=== PATIENT | female | born 1985 | race Caucasian/White ===

== ENCOUNTER 2018-02-10 20:39 | Inpatient (IN) | payer BC ==
[~2018-02-10] VITALS: Ht 154.9 cm; Wt 69.0 kg
[2018-02-10 22:29] LABS: BASOPHILS % (AUTO) 0.2 % (0-1); EOSINOPHILS # (AUTO) 0.1 X10'3 (0-0.9); EOSINOPHILS % (AUTO) 1.1 % (0-6); HEMATOCRIT 39.5 % (35.0-45.0); HEMOGLOBIN 13.6 g/dl (12.0-16.0); LYMPHOCYTES # (AUTO) 1.2 X10'3 (1.1-4.8); LYMPHOCYTES % (AUTO) 10.5 % (21-51); MEAN CORPUSCULAR HEMOGLOBIN 30.9 PG (27.0-31.0); MEAN CORPUSCULAR HGB CONC 34.4 % (33.0-36.5); MEAN CORPUSCULAR VOLUME 89.9 FL (78-98); MEAN PLATELET VOLUME 8.4 FL (7.4-10.4); MONOCYTES # (AUTO) 0.9 X10'3 (0-0.9); NEUTROPHILS # (AUTO) 9.3 X10'3 (1.8-7.7); NEUTROPHILS % (AUTO) 80.2 % (42-75); PLATELET COUNT 265 X10'3 (140-440); RED BLOOD COUNT 4.39 X10'6 (4.20-5.60); WHITE BLOOD COUNT 11.6 X10'3 (4.5-11.0)
[2018-02-10 22:39] LABS: PROTHROMBIN TIME 10.1 SECONDS (9.0-12.0)
[2018-02-10 22:46] LABS: ALANINE AMINOTRANSFERASE 410 U/L (12-78); ALBUMIN 3.8 G/DL (3.4-5.0); ALKALINE PHOSPHATASE 174 IU/L (46-116); ANION GAP 9 (8-16); ASPARTATE AMINO TRANSFERASE 320 U/L (10-37); BILIRUBIN,TOTAL 1.8 MG/DL (0.1-1.0); BLOOD UREA NITROGEN 13 MG/DL (7-18); BUN/CREATININE RATIO 15.7 (6.6-38.0); CALCIUM 9.3 MG/DL (8.5-10.1); CHLORIDE 108 MMOL/L (99-107); CREATININE 0.83 MG/DL (0.40-0.90); GLUCOSE 109 MG/DL (70-104); POTASSIUM 3.8 MMOL/L (3.5-5.1); SODIUM 145 MMOL/L (135-145); TOTAL CARBON DIOXIDE 28.5 MMOL/L (24-32); TOTAL PROTEIN 7.5 G/DL (6.4-8.2); eGFR 80 ML/MIN
[2018-02-10] MEDS ORDERED: mag hydrox/Alum hydrox/simeth 30ml oral suspension PO ONE (22:50)
[2018-02-10] MEDS ORDERED: LIDOcaine Viscous 15ml cup MM PRN (22:50)
[2018-02-10 23:23] LABS: LIPASE 216 U/L (73-393)
[2018-02-10] MEDS ORDERED: morphine 4 MG/ML inj SYRINge IV ONE (23:30)
[2018-02-10] MEDS ORDERED: ondansetron/PF 4mg/2ml inj IV ONE (23:30)
[2018-02-10 23:52] LABS: URINE HCG NEGATIVE (NEG)
[2018-02-10 23:53] LABS: ETHANOL < 0.010 GM/DL (0.0-0.010)
[2018-02-11] VITALS (18 sets, daily range): BP systolic 100–137; BP diastolic 65–99
[2018-02-11] LABS: COLOR,URINE YELLOW (Yellow); GLUCOSE, URINE NEGATIVE (Neg); KETONES,URINE TRACE mg/dl (Neg); LEUKOCYTE ESTERASE ,URINE NEGATIVE (Neg); NITRITES, URINE NEGATIVE (Neg); OCCULT BLOOD,URINE NEGATIVE (Neg); PROTEIN,URINE TRACE mg/dl (Neg)
[2018-02-11 00:09] LABS: CLARITY,URINE SLIGHTLY CLOUDY (Clear); UA COLLECTION TYPE CLN CATCH MIDSTREAM
[2018-02-11 00:11] LABS: BACTERIA,URINE FEW /HPF (Neg); MUCUS STRANDS MODERATE /LPF (Neg); RBC,URINE 0-2 /HPF (0-2); SQUAMOUS EPITHELIAL CELL,UR FEW /LPF (FEW); URINE AMPHETAMINE SCREEN NEGATIVE (Neg); URINE BARBITUATE SCREEN NEGATIVE (Neg); URINE BENZODIAZEPINES SCREEN NEGATIVE (Neg); URINE CANNABINOID SCREEN NEGATIVE (Neg); URINE COCAINE SCREEN NEGATIVE (Neg); URINE METHADONE SCREEN NEGATIVE (Neg); URINE OPIATE SCREEN NEGATIVE (Neg); URINE PHENCYCLIDINE SCREEN NEGATIVE (Neg); WBC,URINE 0-4 /HPF (0-4)
[2018-02-11] MEDS ORDERED: normal saline 1000ml 1,000 ML IV ONE (00:26)
[2018-02-11] MEDS ORDERED: normal saline 1000ML IV soln IVB ONE ×3 (00:30→02:40)
[2018-02-11] MEDS ORDERED: morphine 4 MG/ML inj SYRINge IV PRN ×3 (00:30→02:35)
[2018-02-11] MEDS ORDERED: iohexol 300mg/ml 100ml inj. ONE (00:34)
[2018-02-11] MEDS ORDERED: piperacillin/tazo 3.375gm/50ml 50 ML IV ONE (01:25)
[2018-02-11] MEDS ORDERED: HYDROcodone/acetaminophen 5mg/325mg tablet PO PRN (02:35)
[2018-02-11] MEDS ORDERED: magnesium 4gm in 100ml NS 100 ML IV PRN (02:35)
[2018-02-11] MEDS ORDERED: ondansetron/PF 4mg/2ml inj IV PRN (02:35)
[2018-02-11] MEDS ORDERED: potassium Cl 40MEQ/NS 500ml 500 ML IV PRN ×2 (02:35)
[2018-02-11] MEDS ORDERED: HYDROcodone/acetaminophen 10/325mg tab PO PRN (02:35)
[2018-02-11] MEDS ORDERED: acetaminophen 325mg tablet PO PRN ×2 (02:35)
[2018-02-11] MEDS ORDERED: potassium Cl 20 mEq SR tablet PO PRN ×2 (02:35)
[2018-02-11] MEDS ORDERED: magnesium 2GM in 50ml NS 50 ML IV PRN (02:35)
[2018-02-11] MEDS ORDERED: magnesium Cl slow-release 64mg tablet PO PRN (02:35)
[2018-02-11] MEDS ORDERED: magnesium hydroxide 30ml (MOM) UD suspension PO PRN (02:35)
[2018-02-11] MEDS ORDERED: mag hydrox/Alum hydrox/simeth 30ml oral suspension PO PRN (02:35)
[2018-02-11] MEDS: normal saline 1000ml 1,000 ML IV SCH ×3 (03:10→22:32)
[2018-02-11] MEDS ORDERED: PANT20TA3 PO (03:16)
[2018-02-11] MEDS ORDERED: AMOX-441 PO (03:16)
[2018-02-11] MEDS ORDERED: CLAR500T PO (03:16)
[2018-02-11 04:57] LABS: ALANINE AMINOTRANSFERASE 352 U/L (12-78); ALBUMIN 3.1 G/DL (3.4-5.0); ALKALINE PHOSPHATASE 160 IU/L (46-116); ASPARTATE AMINO TRANSFERASE 232 U/L (10-37); BILIRUBIN,DIRECT 0.8 MG/DL (0-0.3); BILIRUBIN,TOTAL 1.6 MG/DL (0.1-1.0); TOTAL PROTEIN 6.2 G/DL (6.4-8.2)
[2018-02-11] MEDS: K and/or MAG REPLACEMENT MC SCH (08:00)
[2018-02-11] MEDS: piperacillin/tazo 3.375gm/50ml 50 ML IV SCH ×2 (08:41→19:21)
[2018-02-11] MEDS: morphine 4 MG/ML inj SYRINge IV PRN ×3 (14:18→23:29)
[2018-02-11] MEDS ORDERED: diphenhydrAMINE 50 mg/ml inj ONE (15:24)
[2018-02-11] MEDS ORDERED: meperidine/PF 100mg/ml syringe ONE (15:24)
[2018-02-11] MEDS ORDERED: fentaNYL/PF 50MCG/1 ML 2ML syringe ONE (15:24)
[2018-02-11] MEDS ORDERED: LIDOcaine Viscous 15ml cup ONE (15:24)
[2018-02-11] MEDS ORDERED: MIDAZolam 5mg/5ml vial ONE (15:24)
[2018-02-11] MEDS ORDERED: levoFLOXACIN-Levaquin 500mg/D5 0 ML IV ONE (15:25)
[2018-02-11] MEDS ORDERED: iohexol 300 MG/1 ML 50ml polymer ONE (15:25)
[2018-02-11] MEDS ORDERED: glucagon, human recombinant 1mg kit ONE (15:25)
[2018-02-11] MEDS ORDERED: temazepam 15mg capsule PO PRN (21:00)
[2018-02-12] VITALS (17 sets, daily range): BP systolic 108–140; BP diastolic 72–98
[2018-02-12] MEDS: piperacillin/tazo 3.375gm/50ml 50 ML IV SCH ×2 (00:44→08:00)
[2018-02-12 04:08] LABS: BASOPHILS % (AUTO) 0.1 % (0-1); EOSINOPHILS # (AUTO) 0.2 X10'3 (0-0.9); EOSINOPHILS % (AUTO) 2.3 % (0-6); HEMATOCRIT 32.9 % (35.0-45.0); LYMPHOCYTES % (AUTO) 26.8 % (21-51); MEAN CORPUSCULAR HEMOGLOBIN 30.3 PG (27.0-31.0); MEAN CORPUSCULAR HGB CONC 33.4 % (33.0-36.5); MEAN CORPUSCULAR VOLUME 90.5 FL (78-98); MEAN PLATELET VOLUME 8.1 FL (7.4-10.4); MONOCYTES # (AUTO) 0.7 X10'3 (0-0.9); MONOCYTES % (AUTO) 9.6 % (2-12); NEUTROPHILS # (AUTO) 4.6 X10'3 (1.8-7.7); NEUTROPHILS % (AUTO) 61.2 % (42-75); PLATELET COUNT 208 X10'3 (140-440); RED BLOOD COUNT 3.63 X10'6 (4.20-5.60); RED CELL DISTRIBUTION WIDTH 13.3 % (11.5-14.5); WHITE BLOOD COUNT 7.5 X10'3 (4.5-11.0)
[2018-02-12 04:42] LABS: ALANINE AMINOTRANSFERASE 242 U/L (12-78); ALKALINE PHOSPHATASE 136 IU/L (46-116); ANION GAP 12 (8-16); ASPARTATE AMINO TRANSFERASE 98 U/L (10-37); BILIRUBIN,TOTAL 1.2 MG/DL (0.1-1.0); BLOOD UREA NITROGEN 5 MG/DL (7-18); BUN/CREATININE RATIO 6.8 (6.6-38.0); CALCIUM 7.8 MG/DL (8.5-10.1); CHLORIDE 106 MMOL/L (99-107); CREATININE 0.74 MG/DL (0.40-0.90); GLUCOSE 77 MG/DL (70-104); MAGNESIUM 1.9 MG/DL (1.5-2.4); POTASSIUM 3.5 MMOL/L (3.5-5.1); SODIUM 141 MMOL/L (135-145); TOTAL CARBON DIOXIDE 23.1 MMOL/L (24-32); eGFR > 90 ML/MIN
[2018-02-12] MEDS: K and/or MAG REPLACEMENT MC SCH (08:00)
[2018-02-12] MEDS ORDERED: ceFAZolin 1000mg inj IR ONE (08:00)
[2018-02-12] MEDS ORDERED: fentaNYL /PF 50mcg/ml 5ml ampule ONE (08:05)
[2018-02-12] MEDS ORDERED: midazolam 2 mg/2 ml injection ONE (08:05)
[2018-02-12] MEDS: normal saline 1000ml 1,000 ML IV SCH (08:32)
[2018-02-12] MEDS ORDERED: ringers solution, lacted 1,000 ML IV SCH (08:34)
[2018-02-12] MEDS ORDERED: ondansetron/PF 4mg/2ml inj IV PRN (08:35)
[2018-02-12] MEDS ORDERED: meperidine/PF 25mg/ml syringe IV PRN ×2 (08:35)
[2018-02-12] MEDS ORDERED: morphine 4 MG/ML inj SYRINge IV PRN ×2 (08:35)
[2018-02-12] MEDS ORDERED: proCHLORperazine 10 MG/2 ml inj IV PRN (08:35)
[2018-02-12] MEDS ORDERED: rocuronium 10mg/ml inj IV ONE (08:50)
[2018-02-12] MEDS ORDERED: glycopyrrolate 0.2mg/ml inj ONE (08:50)
[2018-02-12] MEDS ORDERED: dexamethasone sod phosphate 4mg/ml inj. ONE (08:50)
[2018-02-12] MEDS ORDERED: neostigmine methylsulfate 1 MG/ML 10ml vial ONE (08:50)
[2018-02-12] MEDS ORDERED: propofol inj 20 ML IV ONE (08:50)
[2018-02-12] MEDS ORDERED: ondansetron/PF 4mg/2ml inj ONE (08:50)
[2018-02-12] MEDS ORDERED: LIDOcaine 2% (20mg/ml) 5ml vial ONE (08:50)
[2018-02-12] MEDS ORDERED: meperidine/PF 50mg/ml syringe ONE (09:00)
[2018-02-12] MEDS ORDERED: ketorolac trometh. 30mg/ml inj. IV ONE (09:15)
[2018-02-12] MEDS ORDERED: acetaminophen 1,000mg/100ml IV 100 ML IV ONE (09:15)
[2018-02-12] MEDS: meperidine/PF 25mg/ml syringe IV PRN ×2 (09:21→09:47)
[2018-02-12] MEDS ORDERED: ceFAZolin 1000mg inj ONE (09:23)
[2018-02-12] MEDS ORDERED: morphine 2 MG/ML inj. syringe IV ONE (11:25)
[2018-02-12] MEDS ORDERED: LIDOcaine Viscous 15ml cup MM ONE (11:25)
[2018-02-12] MEDS: morphine 4 MG/ML inj SYRINge IV PRN ×4 (11:32→23:31)
[2018-02-12] MEDS: amoxicillin 250mg capsule PO SCH (19:36)
[2018-02-12] MEDS: pantoprazole 40mg Tablet.DR PO SCH ×2 (19:36→19:43)
[2018-02-12] MEDS: clarithromycin 250mg tablet PO SCH (19:36)
[2018-02-12] MEDS: lactobacillus rhamnosus 10,000 MMU CELLS/CAPSULE PO SCH (19:36)
[2018-02-13] VITALS: BP 123/78
[2018-02-13] MEDS: morphine 4 MG/ML inj SYRINge IV PRN ×3 (03:31→16:10)
[2018-02-13 05:29] LABS: BASOPHILS % (AUTO) 0 % (0-1); EOSINOPHILS # (AUTO) 0.1 X10'3 (0-0.9); EOSINOPHILS % (AUTO) 0.9 % (0-6); HEMATOCRIT 32.8 % (35.0-45.0); HEMOGLOBIN 11.1 g/dl (12.0-16.0); LYMPHOCYTES # (AUTO) 0.7 X10'3 (1.1-4.8); LYMPHOCYTES % (AUTO) 6.2 % (21-51); MEAN CORPUSCULAR HEMOGLOBIN 30.5 PG (27.0-31.0); MEAN CORPUSCULAR HGB CONC 33.8 % (33.0-36.5); MEAN CORPUSCULAR VOLUME 90.3 FL (78-98); MEAN PLATELET VOLUME 8.7 FL (7.4-10.4); MONOCYTES # (AUTO) 0.9 X10'3 (0-0.9); MONOCYTES % (AUTO) 7.8 % (2-12); NEUTROPHILS # (AUTO) 9.3 X10'3 (1.8-7.7); NEUTROPHILS % (AUTO) 85.1 % (42-75); PLATELET COUNT 240 X10'3 (140-440); RED BLOOD COUNT 3.63 X10'6 (4.20-5.60); RED CELL DISTRIBUTION WIDTH 13.1 % (11.5-14.5); WHITE BLOOD COUNT 10.9 X10'3 (4.5-11.0)
[2018-02-13 06:09] LABS: ALANINE AMINOTRANSFERASE 264 U/L (12-78); ALBUMIN 3.2 G/DL (3.4-5.0); ALKALINE PHOSPHATASE 130 IU/L (46-116); ANION GAP 9 (8-16); ASPARTATE AMINO TRANSFERASE 139 U/L (10-37); BILIRUBIN,TOTAL 0.6 MG/DL (0.1-1.0); BLOOD UREA NITROGEN 6 MG/DL (7-18); CALCIUM 8.4 MG/DL (8.5-10.1); CHLORIDE 105 MMOL/L (99-107); GLUCOSE 104 MG/DL (70-104); MAGNESIUM 1.9 MG/DL (1.5-2.4); POTASSIUM 3.9 MMOL/L (3.5-5.1); SODIUM 138 MMOL/L (135-145); TOTAL PROTEIN 6.4 G/DL (6.4-8.2); eGFR > 90 ML/MIN
[2018-02-13 07:06] VITALS: BP 111/75
[2018-02-13] MEDS: K and/or MAG REPLACEMENT MC SCH (08:00)
[2018-02-13] MEDS: pantoprazole 40mg Tablet.DR PO SCH (08:00)
[2018-02-13] MEDS: clarithromycin 250mg tablet PO SCH (08:57)
[2018-02-13] MEDS: lactobacillus rhamnosus 10,000 MMU CELLS/CAPSULE PO SCH ×2 (08:57→19:44)
[2018-02-13] MEDS: amoxicillin 250mg capsule PO SCH (08:57)
[2018-02-13 11:48] VITALS: BP 115/83
[2018-02-13 19:00] VITALS: BP 111/73
[2018-02-13] MEDS ORDERED: morphine 2 MG/ML inj. syringe IV PRN (19:17)
[2018-02-13] MEDS: morphine 2 MG/ML inj. syringe IV PRN (20:41)
[2018-02-14 05:21] LABS: BASOPHILS % (AUTO) 0.2 % (0-1); EOSINOPHILS # (AUTO) 0.1 X10'3 (0-0.9); EOSINOPHILS % (AUTO) 1.6 % (0-6); HEMATOCRIT 32.1 % (35.0-45.0); HEMOGLOBIN 10.8 g/dl (12.0-16.0); LYMPHOCYTES # (AUTO) 1.7 X10'3 (1.1-4.8); MEAN CORPUSCULAR HEMOGLOBIN 30.5 PG (27.0-31.0); MEAN CORPUSCULAR HGB CONC 33.5 % (33.0-36.5); MEAN CORPUSCULAR VOLUME 90.8 FL (78-98); MEAN PLATELET VOLUME 8.3 FL (7.4-10.4); MONOCYTES # (AUTO) 0.8 X10'3 (0-0.9); MONOCYTES % (AUTO) 10.2 % (2-12); NEUTROPHILS # (AUTO) 5.4 X10'3 (1.8-7.7); PLATELET COUNT 202 X10'3 (140-440); RED BLOOD COUNT 3.53 X10'6 (4.20-5.60); RED CELL DISTRIBUTION WIDTH 13.2 % (11.5-14.5); WHITE BLOOD COUNT 8.1 X10'3 (4.5-11.0)
[2018-02-14] MEDS: morphine 2 MG/ML inj. syringe IV PRN (05:25)
[2018-02-14 05:31] LABS: ALANINE AMINOTRANSFERASE 231 U/L (12-78); ALBUMIN/GLOBULIN RATIO 0.9 (1.1-1.5); ALKALINE PHOSPHATASE 112 IU/L (46-116); ANION GAP 7 (8-16); ASPARTATE AMINO TRANSFERASE 90 U/L (10-37); BILIRUBIN,TOTAL 0.4 MG/DL (0.1-1.0); BLOOD UREA NITROGEN 9 MG/DL (7-18); BUN/CREATININE RATIO 14.8 (6.6-38.0); CALCIUM 8.5 MG/DL (8.5-10.1); CHLORIDE 107 MMOL/L (99-107); CREATININE 0.61 MG/DL (0.40-0.90); GLUCOSE 100 MG/DL (70-104); POTASSIUM 3.9 MMOL/L (3.5-5.1); SODIUM 142 MMOL/L (135-145); TOTAL CARBON DIOXIDE 28.3 MMOL/L (24-32); TOTAL PROTEIN 6.2 G/DL (6.4-8.2); eGFR > 90 ML/MIN
[2018-02-14 05:37] VITALS: BP 107/68
[2018-02-14 07:16] VITALS: BP 105/72
[2018-02-14] MEDS: K and/or MAG REPLACEMENT MC SCH (08:00)
[2018-02-14] MEDS: lactobacillus rhamnosus 10,000 MMU CELLS/CAPSULE PO SCH (08:02)
[2018-02-14 11:00] VITALS: BP 118/74
[2018-02-14] MEDS ORDERED: OMEP-50 PO (12:58)
[2018-02-14] MEDS ORDERED: HYDR-569 PO (12:58)
== END 2018-02-14 15:10 | disposition home or self-care (01) | DRG 446 ==
LOC: ER 20:40 → ED HOLD 02-11 02:32 → SUR 3N 02-11 03:30
PROVIDERS: ADMIT Family Medicine; ATTEND Family Medicine
PROC: 0FC98ZZ Extirpation of Matter from Common Bile Duct, Via Natural or Artificial Opening Endoscopic (ICD-10-PCS; principal; 2018-02-11)
PROC: BF101ZZ Fluoroscopy of Bile Ducts using Low Osmolar Contrast (ICD-10-PCS; 2018-02-11)
PROC: BW211ZZ Computerized Tomography (CT Scan) of Abdomen and Pelvis using Low Osmolar Contrast (ICD-10-PCS; 2018-02-11)
DX: K80.62 Calculus of gallbladder and bile duct with acute cholecystitis without obstruction (principal); E28.2 Polycystic ovarian syndrome; E66.3 Overweight; G47.00 Insomnia, unspecified; N87.9 Dysplasia of cervix uteri, unspecified; K21.9 Gastro-esophageal reflux disease without esophagitis; Z68.28 Body mass index [BMI] 28.0-28.9, adult
CPT/HCPCS: 36415; 74177; 74181; 76700; 80053; 80076; 80305; 80320; 81001; 81003; 81025; 83605; 83690; 83735; 84100; 84145; 85025; 85610; 87040; 87070; A4620; A7000; G0500; J0131; J0690; J1100; J1200; J1610; J1885; J1956; J2001; J2175; J2250; J2270; J2405; J2543; J2704; J2710; J3010; J3490; J7030; J7120; Q9967

== ENCOUNTER 2018-03-27 13:41 | Emergency (ER) | payer BC ==
[~2018-03-27] VITALS: Ht 154.9 cm; Wt 68.8 kg
[~2018-03-27 13:41] MED LIST: AMOX-441 PO; CLAR500T PO; HYDR-569 PO; OMEP-50 PO
[2018-03-27] MEDS ORDERED: LORazepam 1 MG tablet PO ONE (14:55)
[2018-03-27 15:15] LABS: BASOPHILS # (AUTO) 0.1 X10'3 (0-0.2); BASOPHILS % (AUTO) 0.6 % (0-1); EOSINOPHILS # (AUTO) 0.1 X10'3 (0-0.9); EOSINOPHILS % (AUTO) 0.7 % (0-6); HEMATOCRIT 38.5 % (35.0-45.0); LYMPHOCYTES % (AUTO) 21.3 % (21-51); MEAN CORPUSCULAR HEMOGLOBIN 30.7 PG (27.0-31.0); MEAN CORPUSCULAR HGB CONC 33.7 % (33.0-36.5); MEAN PLATELET VOLUME 8.4 FL (7.4-10.4); MONOCYTES # (AUTO) 0.9 X10'3 (0-0.9); MONOCYTES % (AUTO) 9.9 % (2-12); NEUTROPHILS # (AUTO) 6.1 X10'3 (1.8-7.7); NEUTROPHILS % (AUTO) 67.5 % (42-75); PLATELET COUNT 290 X10'3 (140-440); RED BLOOD COUNT 4.24 X10'6 (4.20-5.60); RED CELL DISTRIBUTION WIDTH 12.8 % (11.5-14.5); WHITE BLOOD COUNT 9.2 X10'3 (4.5-11.0)
[2018-03-27 15:17] LABS: ALANINE AMINOTRANSFERASE 52 U/L (12-78); ALBUMIN 3.8 G/DL (3.4-5.0); ALKALINE PHOSPHATASE 88 IU/L (46-116); ANION GAP 9 (8-16); ASPARTATE AMINO TRANSFERASE 17 U/L (10-37); BILIRUBIN,TOTAL 0.3 MG/DL (0.1-1.0); BLOOD UREA NITROGEN 9 MG/DL (7-18); BUN/CREATININE RATIO 11.4 (6.6-38.0); CALCIUM 8.3 MG/DL (8.5-10.1); CHLORIDE 106 MMOL/L (99-107); CREATININE 0.79 MG/DL (0.40-0.90); GLUCOSE 94 MG/DL (70-104); POTASSIUM 3.5 MMOL/L (3.5-5.1); SODIUM 139 MMOL/L (135-145); TOTAL PROTEIN 7.6 G/DL (6.4-8.2); eGFR 84 ML/MIN
[2018-03-27 15:24] LABS: BETA HCG,QUANTITATIVE < 1.0 mIU/ml; LIPASE 164 U/L (73-393)
[2018-03-27 16:07] VITALS: BP 127/81
[2018-03-27 16:31] LABS: URINE HCG NEGATIVE (NEG)
[2018-03-27 16:34] LABS: COLOR,URINE YELLOW (Yellow); GLUCOSE, URINE NEGATIVE (Neg); KETONES,URINE TRACE mg/dl (Neg); LEUKOCYTE ESTERASE ,URINE MODERATE (Neg); NITRITES, URINE NEGATIVE (Neg); OCCULT BLOOD,URINE TRACE-LYSED (Neg); PROTEIN,URINE NEGATIVE (Neg); UROBILINOGEN,URINE 0.2 E.U/dL (0.2-1.0)
[2018-03-27 16:46] LABS: CLARITY,URINE SLIGHTLY CLOUDY (Clear); UA COLLECTION TYPE VOIDED
[2018-03-27 16:47] LABS: BACTERIA,URINE 2+ /HPF (Neg); MUCUS STRANDS FEW /LPF (Neg); RBC,URINE 0-2 /HPF (0-2); SQUAMOUS EPITHELIAL CELL,UR FEW /LPF (FEW)
== END 2018-03-27 16:35 | disposition home or self-care (01) ==
LOC: ER 13:42
DX: N83.202 Unspecified ovarian cyst, left side (principal); N93.9 Abnormal uterine and vaginal bleeding, unspecified; G47.00 Insomnia, unspecified; R10.13 Epigastric pain; R10.11 Right upper quadrant pain; K21.9 Gastro-esophageal reflux disease without esophagitis; Z88.8 Allergy status to other drugs, medicaments and biological substances; Z90.49 Acquired absence of other specified parts of digestive tract
CPT/HCPCS: 36415; 76700; 76856; 80053; 81001; 81025; 83690; 84439; 84443; 84702; 85025; 87088; 99285

== ENCOUNTER 2018-04-16 11:01 | Emergency (ER) | payer BC ==
[~2018-04-16] VITALS: Ht 154.9 cm; Wt 68.2 kg
[2018-04-16] MEDS ORDERED: LORazepam 1 MG tablet PO ONE (11:45)
[2018-04-16] MEDS ORDERED: ibuprofen tablet 400 MG TABLET PO ONE (11:50)
[2018-04-16] MEDS ORDERED: HYDR-3686 PO (13:32)
[2018-04-16 13:55] VITALS: BP 114/86
== END 2018-04-16 13:57 | disposition home or self-care (01) ==
LOC: ER 11:02
DX: G47.00 Insomnia, unspecified (principal); K21.9 Gastro-esophageal reflux disease without esophagitis; Z90.49 Acquired absence of other specified parts of digestive tract; Z88.8 Allergy status to other drugs, medicaments and biological substances; Z79.2 Long term (current) use of antibiotics; Z79.899 Other long term (current) drug therapy
CPT/HCPCS: 36415; 84443; 99283

== ENCOUNTER 2018-05-07 04:46 | Emergency (ER) | payer BC ==
[~2018-05-07] VITALS: Ht 154.9 cm; Wt 67.7 kg
[2018-05-07 05:06] LABS: URINE HCG NEGATIVE (NEG)
[2018-05-07 05:07] LABS: CLARITY,URINE CLOUDY (Clear); COLOR,URINE YELLOW (Yellow); GLUCOSE, URINE NEGATIVE (Neg); KETONES,URINE NEGATIVE (Neg); LEUKOCYTE ESTERASE ,URINE NEGATIVE (Neg); NITRITES, URINE NEGATIVE (Neg); OCCULT BLOOD,URINE TRACE-LYSED (Neg); PROTEIN,URINE 30 mg/dl (Neg); UROBILINOGEN,URINE 0.2 E.U/dL (0.2-1.0)
[2018-05-07 05:17] LABS: UA COLLECTION TYPE CLN CATCH MIDSTREAM
[2018-05-07 05:18] LABS: BACTERIA,URINE FEW /HPF (Neg); MUCUS STRANDS MODERATE /LPF (Neg); RBC,URINE 0-2 /HPF (0-2); SQUAMOUS EPITHELIAL CELL,UR FEW /LPF (FEW); WBC,URINE 20-30 /HPF (0-4)
[2018-05-07] MEDS ORDERED: AMOX500C2 PO (05:20)
[2018-05-07 05:48] VITALS: BP 112/77
== END 2018-05-07 05:50 | disposition home or self-care (01) ==
LOC: ER 04:47
DX: N39.0 Urinary tract infection, site not specified (principal); K21.9 Gastro-esophageal reflux disease without esophagitis; F41.9 Anxiety disorder, unspecified; F32.9 Major depressive disorder, single episode, unspecified; Z90.49 Acquired absence of other specified parts of digestive tract; Z88.1 Allergy status to other antibiotic agents; Z88.8 Allergy status to other drugs, medicaments and biological substances; Z88.6 Allergy status to analgesic agent
CPT/HCPCS: 81001; 81025; 87077; 87088; 87186; 99284

== ENCOUNTER 2018-12-22 23:53 | Emergency (ER) | payer BC ==
[~2018-12-22] VITALS: Ht 154.9 cm; Wt 70.1 kg
[~2018-12-22 23:53] MED LIST changes: +HYDR-4383 PO; -HYDR-569 PO
[2018-12-22 23:57] VITALS: BP 132/90
--- NOTE | 2018-12-23 01:14 | NUR ---
pt given warm blanket, awaiting er md
== END 2018-12-23 02:34 | disposition home or self-care (01) ==
LOC: ER 23:54
DX: J02.9 Acute pharyngitis, unspecified (principal); H92.03 Otalgia, bilateral; K21.9 Gastro-esophageal reflux disease without esophagitis; Z90.49 Acquired absence of other specified parts of digestive tract; Z88.8 Allergy status to other drugs, medicaments and biological substances; Z79.899 Other long term (current) drug therapy
CPT/HCPCS: 99281

== ENCOUNTER 2019-09-27 00:06 | Emergency (ER) | payer BC ==
[~2019-09-27] VITALS: Ht 154.9 cm; Wt 70.5 kg
[2019-09-27 00:25] LABS: URINE HCG NEGATIVE (NEG)
[2019-09-27 00:55] LABS: COLOR,URINE YELLOW (Yellow); GLUCOSE, URINE NEGATIVE (Neg); KETONES,URINE NEGATIVE (Neg); LEUKOCYTE ESTERASE ,URINE NEGATIVE (Neg); NITRITES, URINE NEGATIVE (Neg); OCCULT BLOOD,URINE NEGATIVE (Neg); PROTEIN,URINE NEGATIVE (Neg); UROBILINOGEN,URINE 0.2 E.U/dL (0.2-1.0)
[2019-09-27 00:56] LABS: CLARITY,URINE SLIGHTLY CLOUDY (Clear); UA COLLECTION TYPE CLN CATCH MIDSTREAM
[2019-09-27 00:57] LABS: BACTERIA,URINE NONE SEEN /HPF (Neg); MUCUS STRANDS MANY /LPF (Neg); RBC,URINE NONE SEEN /HPF (0-2); SQUAMOUS EPITHELIAL CELL,UR MODERATE /LPF (FEW); WBC,URINE 0-4 /HPF (0-4)
[2019-09-27 01:53] VITALS: BP 98/135
== END 2019-09-27 01:54 | disposition home or self-care (01) ==
LOC: ER 00:07
DX: N39.0 Urinary tract infection, site not specified (principal); K21.9 Gastro-esophageal reflux disease without esophagitis; F41.9 Anxiety disorder, unspecified; F32.9 Major depressive disorder, single episode, unspecified; Z88.8 Allergy status to other drugs, medicaments and biological substances; Z79.2 Long term (current) use of antibiotics; Z79.899 Other long term (current) drug therapy; Z90.49 Acquired absence of other specified parts of digestive tract
CPT/HCPCS: 81001; 81025; 99283

== ENCOUNTER 2019-10-20 06:35 | Emergency (ER) | payer BC ==
[~2019-10-20] VITALS: Ht 154.9 cm; Wt 73.0 kg
[~2019-10-20 06:35] MED LIST changes: -CLAR500T PO; +CLAR500T22 PO
[2019-10-20] MEDS ORDERED: normal saline 1000ML IV soln IV ONE (07:00)
[2019-10-20] MEDS ORDERED: ketorolac tromethamine 15mg/ml inj. IV ONE (07:00)
[2019-10-20] MEDS ORDERED: acetaminophen 325mg tablet PO ONE (07:00)
--- NOTE | 2019-10-20 07:16 | NUR ---
pt came in complaining of chills and body aches that started last night
[2019-10-20 07:17] LABS: BASOPHILS % (AUTO) 0.1 % (0-1); EOSINOPHILS % (AUTO) 0.1 % (0-6); HEMATOCRIT 36.8 % (35.0-45.0); HEMOGLOBIN 12.7 g/dl (12.0-16.0); LYMPHOCYTES # (AUTO) 0.5 X10'3 (1.1-4.8); LYMPHOCYTES % (AUTO) 9.8 % (21-51); MEAN CORPUSCULAR HEMOGLOBIN 30.8 PG (27.0-31.0); MEAN CORPUSCULAR HGB CONC 34.6 g/dL (33.0-36.5); MEAN PLATELET VOLUME 8.1 FL (7.4-10.4); MONOCYTES # (AUTO) 0.9 X10'3 (0-0.9); MONOCYTES % (AUTO) 17.2 % (2-12); NEUTROPHILS # (AUTO) 3.8 X10'3 (1.8-7.7); NEUTROPHILS % (AUTO) 72.8 % (42-75); PLATELET COUNT 210 X10'3 (140-440); RED BLOOD COUNT 4.14 X10'6 (4.20-5.60); RED CELL DISTRIBUTION WIDTH 13.3 % (11.5-14.5); WHITE BLOOD COUNT 5.2 X10'3 (4.5-11.0)
[2019-10-20 07:41] LABS: ALANINE AMINOTRANSFERASE 45 U/L (12-78); ALBUMIN 3.7 G/DL (3.4-5.0); ALBUMIN/GLOBULIN RATIO 1.1 (1.1-1.5); ALKALINE PHOSPHATASE 85 IU/L (46-116); ANION GAP 9 (8-16); ASPARTATE AMINO TRANSFERASE 30 U/L (10-37); BILIRUBIN,TOTAL 0.2 MG/DL (0.1-1.0); BLOOD UREA NITROGEN 12 MG/DL (7-18); BUN/CREATININE RATIO 15.2 (6.6-38.0); CALCIUM 8.4 MG/DL (8.5-10.1); CHLORIDE 107 MMOL/L (99-107); CREATININE 0.79 MG/DL (0.40-0.90); GLUCOSE 104 MG/DL (70-104); MAGNESIUM 1.8 MG/DL (1.5-2.4); POTASSIUM 3.5 MMOL/L (3.5-5.1); SODIUM 140 MMOL/L (135-145); TOTAL CARBON DIOXIDE 24.1 MMOL/L (24-32); TOTAL PROTEIN 7.2 G/DL (6.4-8.2); eGFR 84 ML/MIN
[2019-10-20 07:42] VITALS: BP 109/63
[2019-10-20 07:50] LABS: PLATELET ESTIMATE NORMAL; TOTAL CELLS COUNTED 100
[2019-10-20 08:12] LABS: URINE HCG NEGATIVE (NEG)
[2019-10-20 08:20] LABS: CLARITY,URINE CLEAR (Clear); COLOR,URINE YELLOW (Yellow); GLUCOSE, URINE NEGATIVE (Neg); KETONES,URINE NEGATIVE (Neg); LEUKOCYTE ESTERASE ,URINE NEGATIVE (Neg); NITRITES, URINE NEGATIVE (Neg); OCCULT BLOOD,URINE SMALL (Neg); PROTEIN,URINE NEGATIVE (Neg); UROBILINOGEN,URINE 0.2 E.U/dL (0.2-1.0)
[2019-10-20 08:25] LABS: UA COLLECTION TYPE CLN CATCH MIDSTREAM
[2019-10-20 08:26] LABS: BACTERIA,URINE NONE SEEN /HPF (Neg); MUCUS STRANDS FEW /LPF (Neg); RBC,URINE 0-2 /HPF (0-2); SQUAMOUS EPITHELIAL CELL,UR FEW /LPF (FEW); WBC,URINE NONE SEEN /HPF (0-4)
== END 2019-10-20 08:57 | disposition home or self-care (01) ==
LOC: ER 06:36
DX: B34.9 Viral infection, unspecified (principal); K21.9 Gastro-esophageal reflux disease without esophagitis; Z90.49 Acquired absence of other specified parts of digestive tract; Z88.8 Allergy status to other drugs, medicaments and biological substances
CPT/HCPCS: 36415; 71045; 80053; 81001; 81025; 83605; 83735; 84145; 85025; 87040; 96374; 99284; J1885; J7030

== ENCOUNTER 2020-02-06 17:44 | Emergency (ER) | payer BC ==
[~2020-02-06] VITALS: Ht 154.9 cm; Wt 75.0 kg
[2020-02-06 18:51] LABS: BASOPHILS % (AUTO) 0.4 % (0-1); EOSINOPHILS # (AUTO) 0.1 X10'3 (0-0.9); EOSINOPHILS % (AUTO) 0.8 % (0-6); HEMATOCRIT 24.1 % (35.0-45.0); HEMOGLOBIN 7.9 g/dl (12.0-16.0); LYMPHOCYTES # (AUTO) 1.9 X10'3 (1.1-4.8); LYMPHOCYTES % (AUTO) 23.5 % (21-51); MEAN CORPUSCULAR HEMOGLOBIN 27.7 PG (27.0-31.0); MEAN CORPUSCULAR HGB CONC 32.7 g/dL (33.0-36.5); MEAN CORPUSCULAR VOLUME 84.9 FL (78-98); MEAN PLATELET VOLUME 7.4 FL (7.4-10.4); MONOCYTES # (AUTO) 0.8 X10'3 (0-0.9); MONOCYTES % (AUTO) 10.2 % (2-12); NEUTROPHILS # (AUTO) 5.1 X10'3 (1.8-7.7); NEUTROPHILS % (AUTO) 65.1 % (42-75); PLATELET COUNT 324 X10'3 (140-440); RED BLOOD COUNT 2.84 X10'6 (4.20-5.60); RED CELL DISTRIBUTION WIDTH 14.8 % (11.5-14.5); WHITE BLOOD COUNT 7.9 X10'3 (4.5-11.0)
[2020-02-06 19:01] LABS: ALANINE AMINOTRANSFERASE 24 U/L (12-78); ALBUMIN 3.4 G/DL (3.4-5.0); ALBUMIN/GLOBULIN RATIO 0.9 (1.1-1.5); ALKALINE PHOSPHATASE 99 IU/L (46-116); AMYLASE 78 U/L (25-115); ANION GAP 6 (8-16); ASPARTATE AMINO TRANSFERASE 23 U/L (10-37); BILIRUBIN,TOTAL 0.2 MG/DL (0.1-1.0); BLOOD UREA NITROGEN 15 MG/DL (7-18); BUN/CREATININE RATIO 20.3 (6.6-38.0); CALCIUM 8.3 MG/DL (8.5-10.1); CHLORIDE 106 MMOL/L (99-107); CREATININE 0.74 MG/DL (0.40-0.90); GLUCOSE 108 MG/DL (70-104); LIPASE 219 U/L (73-393); POTASSIUM 3.2 MMOL/L (3.5-5.1); SODIUM 140 MMOL/L (135-145); TOTAL CARBON DIOXIDE 28.5 MMOL/L (24-32); TOTAL PROTEIN 7.1 G/DL (6.4-8.2); eGFR 90 ML/MIN
[2020-02-06] MEDS ORDERED: potassium Cl 20 mEq SR tablet PO ONE (19:55)
[2020-02-06 19:57] LABS: URINE HCG NEGATIVE (NEG)
[2020-02-06 19:59] LABS: CLARITY,URINE SLIGHTLY CLOUDY (Clear); COLOR,URINE YELLOW (Yellow); GLUCOSE, URINE NEGATIVE (Neg); KETONES,URINE NEGATIVE (Neg); LEUKOCYTE ESTERASE ,URINE NEGATIVE (Neg); NITRITES, URINE NEGATIVE (Neg); OCCULT BLOOD,URINE LARGE (Neg); PH,URINE 6.5 (4.8-8.0); PROTEIN,URINE NEGATIVE (Neg); UROBILINOGEN,URINE 0.2 E.U/dL (0.2-1.0)
[2020-02-06 20:08] LABS: UA COLLECTION TYPE CLN CATCH MIDSTREAM
[2020-02-06 20:10] LABS: BACTERIA,URINE NONE SEEN /HPF (Neg); MUCUS STRANDS MODERATE /LPF (Neg); RBC,URINE TNTC /HPF (0-2); SQUAMOUS EPITHELIAL CELL,UR MODERATE /LPF (FEW); WBC,URINE 0-4 /HPF (0-4)
[2020-02-06] MEDS ORDERED: normal saline 1000ml 1,000 ML IV ONE ×2 (20:15→21:55)
[2020-02-06] MEDS ORDERED: tranexamic acid 1gm/0.7% sal. 100 ML IV ONE (20:15)
[2020-02-06 20:19] LABS: PARTIAL THROMBOPLASTIN TIME 25 SECONDS (22-32)
--- NOTE | 2020-02-06 21:32 | NUR ---
US WITH PATIENT
[2020-02-06] MEDS ORDERED: medroxyprogesterone acet. 2.5mg tablet PO STA (21:48)
[2020-02-06] MEDS ORDERED: LORazepam 2 mg/ml vial IV ONE (22:35)
[2020-02-06 22:53] LABS: BASOPHILS % (AUTO) 0.5 % (0-1); EOSINOPHILS # (AUTO) 0.1 X10'3 (0-0.9); EOSINOPHILS % (AUTO) 0.7 % (0-6); HEMOGLOBIN 7.2 g/dl (12.0-16.0); LYMPHOCYTES # (AUTO) 2.4 X10'3 (1.1-4.8); LYMPHOCYTES % (AUTO) 32.4 % (21-51); MEAN CORPUSCULAR HEMOGLOBIN 27.9 PG (27.0-31.0); MEAN CORPUSCULAR HGB CONC 32.7 g/dL (33.0-36.5); MEAN CORPUSCULAR VOLUME 85.4 FL (78-98); MONOCYTES # (AUTO) 0.6 X10'3 (0-0.9); MONOCYTES % (AUTO) 8.6 % (2-12); NEUTROPHILS # (AUTO) 4.2 X10'3 (1.8-7.7); NEUTROPHILS % (AUTO) 57.8 % (42-75); PLATELET COUNT 293 X10'3 (140-440); RED BLOOD COUNT 2.56 X10'6 (4.20-5.60); RED CELL DISTRIBUTION WIDTH 15.1 % (11.5-14.5); WHITE BLOOD COUNT 7.3 X10'3 (4.5-11.0)
[2020-02-06 22:57] LABS: HEMATOCRIT 21.9 % (35.0-45.0)
[2020-02-07 00:32] LABS: URINE AMPHETAMINE SCREEN NEGATIVE (Neg); URINE BARBITUATE SCREEN NEGATIVE (Neg); URINE BENZODIAZEPINES SCREEN NEGATIVE (Neg); URINE CANNABINOID SCREEN NEGATIVE (Neg); URINE COCAINE SCREEN NEGATIVE (Neg); URINE METHADONE SCREEN NEGATIVE (Neg); URINE OPIATE SCREEN NEGATIVE (Neg); URINE PHENCYCLIDINE SCREEN NEGATIVE (Neg)
[2020-02-07] MEDS ORDERED: morphine 4 MG/ML inj SYRINge IV ONE (00:50)
[2020-02-07] MEDS ORDERED: sucralfate 1gm/10ml UD suspension PO STA (01:41)
[2020-02-07] MEDS ORDERED: LIDOcaine Viscous 15ml cup MM ONE (01:45)
[2020-02-07] MEDS ORDERED: mag hydrox/Alum hydrox/simeth 30ml oral suspension PO ONE (01:45)
[2020-02-07 02:10] VITALS: BP 125/85
[2020-02-07 02:26] VITALS: BP 115/82
[2020-02-07] MEDS ORDERED: ketorolac trometh. 30mg/ml inj. IV ONE (02:30)
[2020-02-07 03:04] VITALS: BP 115/82
[2020-02-07 04:34] LABS: BASOPHILS % (AUTO) 0.2 % (0-1); EOSINOPHILS % (AUTO) 0.4 % (0-6); HEMATOCRIT 23.9 % (35.0-45.0); HEMOGLOBIN 7.8 g/dl (12.0-16.0); LYMPHOCYTES # (AUTO) 1.7 X10'3 (1.1-4.8); LYMPHOCYTES % (AUTO) 20.5 % (21-51); MEAN CORPUSCULAR HEMOGLOBIN 28.1 PG (27.0-31.0); MEAN CORPUSCULAR HGB CONC 32.8 g/dL (33.0-36.5); MEAN CORPUSCULAR VOLUME 85.7 FL (78-98); MEAN PLATELET VOLUME 7.7 FL (7.4-10.4); MONOCYTES # (AUTO) 0.8 X10'3 (0-0.9); MONOCYTES % (AUTO) 10.1 % (2-12); NEUTROPHILS # (AUTO) 5.6 X10'3 (1.8-7.7); NEUTROPHILS % (AUTO) 68.8 % (42-75); PLATELET COUNT 272 X10'3 (140-440); RED BLOOD COUNT 2.78 X10'6 (4.20-5.60); RED CELL DISTRIBUTION WIDTH 15.1 % (11.5-14.5); WHITE BLOOD COUNT 8.2 X10'3 (4.5-11.0)
[2020-02-07] MEDS ORDERED: MEDR10TA PO (05:18)
[2020-02-07 05:33] VITALS: BP 113/71
== END 2020-02-07 05:49 | disposition home or self-care (01) ==
LOC: ER 17:44
DX: N92.1 Excessive and frequent menstruation with irregular cycle (principal); D62 Acute posthemorrhagic anemia; R10.2 Pelvic and perineal pain; M54.5 Low back pain; R51 Headache; R53.1 Weakness; K21.9 Gastro-esophageal reflux disease without esophagitis; F41.9 Anxiety disorder, unspecified; F32.9 Major depressive disorder, single episode, unspecified; Z90.49 Acquired absence of other specified parts of digestive tract; Z88.8 Allergy status to other drugs, medicaments and biological substances; Z79.2 Long term (current) use of antibiotics; Z79.899 Other long term (current) drug therapy
CPT/HCPCS: 36415; 76700; 76830; 76856; 80053; 80305; 81001; 81025; 82150; 83690; 85025; 85610; 85730; 86885; 86900; 86901; 86920; 93005; 96365; 96374; 96375; 99285; J1885; J2060; J2270; J7030; P9016

== ENCOUNTER 2020-02-10 13:52 | Emergency (ER) | payer BC ==
[~2020-02-10] VITALS: Ht 154.9 cm; Wt 74.6 kg
[~2020-02-10 13:52] MED LIST changes: +MEDR10TA PO
[2020-02-10] MEDS ORDERED: normal saline 1000ML IV soln IVB ONE (14:35)
[2020-02-10 14:46] LABS: BASOPHILS % (AUTO) 0.5 % (0-1); EOSINOPHILS # (AUTO) 0.1 X10'3 (0-0.9); EOSINOPHILS % (AUTO) 1.3 % (0-6); HEMATOCRIT 28.6 % (35.0-45.0); HEMOGLOBIN 9.3 g/dl (12.0-16.0); LYMPHOCYTES # (AUTO) 1.9 X10'3 (1.1-4.8); LYMPHOCYTES % (AUTO) 25.4 % (21-51); MEAN CORPUSCULAR HEMOGLOBIN 27.5 PG (27.0-31.0); MEAN CORPUSCULAR HGB CONC 32.5 g/dL (33.0-36.5); MEAN CORPUSCULAR VOLUME 84.6 FL (78-98); MEAN PLATELET VOLUME 7.9 FL (7.4-10.4); MONOCYTES # (AUTO) 0.8 X10'3 (0-0.9); MONOCYTES % (AUTO) 10.7 % (2-12); NEUTROPHILS # (AUTO) 4.6 X10'3 (1.8-7.7); NEUTROPHILS % (AUTO) 62.1 % (42-75); PLATELET COUNT 345 X10'3 (140-440); RED BLOOD COUNT 3.38 X10'6 (4.20-5.60); RED CELL DISTRIBUTION WIDTH 15.5 % (11.5-14.5); WHITE BLOOD COUNT 7.4 X10'3 (4.5-11.0)
[2020-02-10 15:00] LABS: PARTIAL THROMBOPLASTIN TIME 27 SECONDS (22-32)
[2020-02-10 15:03] LABS: ALANINE AMINOTRANSFERASE 24 U/L (12-78); ALBUMIN 3.5 G/DL (3.4-5.0); ALBUMIN/GLOBULIN RATIO 0.9 (1.1-1.5); ALKALINE PHOSPHATASE 96 IU/L (46-116); ANION GAP 6 (8-16); ASPARTATE AMINO TRANSFERASE 19 U/L (10-37); BILIRUBIN,TOTAL 0.3 MG/DL (0.1-1.0); BLOOD UREA NITROGEN 19 MG/DL (7-18); CALCIUM 8.8 MG/DL (8.5-10.1); CHLORIDE 106 MMOL/L (99-107); CREATININE 0.76 MG/DL (0.40-0.90); GLUCOSE 102 MG/DL (70-104); POTASSIUM 3.6 MMOL/L (3.5-5.1); SODIUM 139 MMOL/L (135-145); TOTAL CARBON DIOXIDE 26.9 MMOL/L (24-32); TOTAL PROTEIN 7.2 G/DL (6.4-8.2); eGFR 87 ML/MIN
[2020-02-10] MEDS ORDERED: tranexamic acid inj. 750 MG in normal saline 100ml IV soln 100 ML IV ONE (16:50)
[2020-02-10 17:39] VITALS: BP 131/81
[2020-02-10] MEDS ORDERED: ketorolac trometh. 30mg/ml inj. IV ONE (17:45)
== END 2020-02-10 18:33 | disposition home or self-care (01) ==
LOC: ER 13:53
DX: N92.0 Excessive and frequent menstruation with regular cycle (principal); R42 Dizziness and giddiness; K21.9 Gastro-esophageal reflux disease without esophagitis; F41.9 Anxiety disorder, unspecified; F32.9 Major depressive disorder, single episode, unspecified; Z90.49 Acquired absence of other specified parts of digestive tract; Z88.8 Allergy status to other drugs, medicaments and biological substances; Z79.2 Long term (current) use of antibiotics; Z79.899 Other long term (current) drug therapy
CPT/HCPCS: 36415; 36430; 80053; 84443; 85025; 85610; 85730; 86885; 86900; 86901; 86920; 96361; 96365; 96375; 99285; J1885; J7030; 99284

== ENCOUNTER 2020-04-04 08:22 | Emergency (ER) | payer BC ==
[~2020-04-04] VITALS: Ht 165.1 cm; Wt 75.0 kg
[2020-04-04] MEDS ORDERED: ketorolac trometh. 30mg/ml inj. IV ONE (08:55)
[2020-04-04 09:10] LABS: BASOPHILS % (AUTO) 0.3 % (0-1); EOSINOPHILS # (AUTO) 0.1 X10'3 (0-0.9); HEMATOCRIT 39.1 % (35.0-45.0); HEMOGLOBIN 12.8 g/dl (12.0-16.0); LYMPHOCYTES # (AUTO) 2.4 X10'3 (1.1-4.8); LYMPHOCYTES % (AUTO) 31.9 % (21-51); MEAN CORPUSCULAR HEMOGLOBIN 26.5 PG (27.0-31.0); MEAN CORPUSCULAR HGB CONC 32.8 g/dL (33.0-36.5); MEAN CORPUSCULAR VOLUME 80.8 FL (78-98); MEAN PLATELET VOLUME 7.8 FL (7.4-10.4); MONOCYTES # (AUTO) 0.6 X10'3 (0-0.9); MONOCYTES % (AUTO) 8.3 % (2-12); NEUTROPHILS # (AUTO) 4.4 X10'3 (1.8-7.7); NEUTROPHILS % (AUTO) 58.5 % (42-75); PLATELET COUNT 344 X10'3 (140-440); RED BLOOD COUNT 4.84 X10'6 (4.20-5.60); RED CELL DISTRIBUTION WIDTH 21.7 % (11.5-14.5); WHITE BLOOD COUNT 7.5 X10'3 (4.5-11.0)
[2020-04-04 09:19] LABS: CLARITY,URINE CLEAR (Clear); COLOR,URINE STRAW (Yellow); GLUCOSE, URINE NEGATIVE (Neg); KETONES,URINE NEGATIVE (Neg); LEUKOCYTE ESTERASE ,URINE NEGATIVE (Neg); NITRITES, URINE NEGATIVE (Neg); OCCULT BLOOD,URINE NEGATIVE (Neg); PH,URINE 6.5 (4.8-8.0); PROTEIN,URINE NEGATIVE (Neg); UROBILINOGEN,URINE 0.2 E.U/dL (0.2-1.0)
[2020-04-04 09:20] LABS: UA COLLECTION TYPE VOIDED
[2020-04-04 09:21] LABS: URINE HCG NEGATIVE (NEG)
[2020-04-04 09:26] LABS: ALANINE AMINOTRANSFERASE 34 U/L (12-78); ALBUMIN 3.7 G/DL (3.4-5.0); ALBUMIN/GLOBULIN RATIO 0.9 (1.1-1.5); ALKALINE PHOSPHATASE 103 IU/L (46-116); ANION GAP 11 (8-16); ASPARTATE AMINO TRANSFERASE 23 U/L (10-37); BILIRUBIN,TOTAL 0.3 MG/DL (0.1-1.0); BLOOD UREA NITROGEN 10 MG/DL (7-18); BUN/CREATININE RATIO 11.4 (6.6-38.0); CALCIUM 9.3 MG/DL (8.5-10.1); CHLORIDE 104 MMOL/L (99-107); CREATININE 0.88 MG/DL (0.40-0.90); GLUCOSE 110 MG/DL (70-104); LIPASE 184 U/L (73-393); POTASSIUM 3.5 MMOL/L (3.5-5.1); SODIUM 139 MMOL/L (135-145); TOTAL PROTEIN 7.9 G/DL (6.4-8.2); eGFR 74 ML/MIN
[2020-04-04 09:51] LABS: ANISOCYTOSIS 3+; ELLIPTOCYTES FEW; PLATELET ESTIMATE NORMAL; TEAR DROP CELLS FEW
[2020-04-04] MEDS ORDERED: morphine 2 MG/ML inj. syringe IV ONE (11:00)
--- NOTE | 2020-04-04 11:25 | NUR ---
PT REFUSED MORPHINE AT THIS TIME UNTIL SHE KNOWS IF SHE WILL BE ADMITTED, STATED SHE DOES NOT HAVE A RIDE AVAILABLE IF DISCHARGED.
--- NOTE | 2020-04-04 12:15 | NUR ---
assumed care of pt from Jeffy AGUIRRE, pt is waiting for technical services analyst
--- NOTE | 2020-04-04 13:35 | NUR ---
PT IS RESTING QUIETLY ON GURNE, WAITING FOR ULTRASOUND RESULTS, C/O LOWER ABD PAIN 01/19, "IT IS THE SAME PAIN I CAME IN WITH"
[2020-04-04] MEDS ORDERED: HYDR-4383 PO (14:05)
[2020-04-04 15:05] VITALS: BP 108/97
== END 2020-04-04 15:06 | disposition home or self-care (01) ==
LOC: ER 08:23
DX: N83.202 Unspecified ovarian cyst, left side (principal); N85.8 Other specified noninflammatory disorders of uterus; R11.0 Nausea; R10.9 Unspecified abdominal pain; K21.9 Gastro-esophageal reflux disease without esophagitis; F32.9 Major depressive disorder, single episode, unspecified; F41.9 Anxiety disorder, unspecified; Z90.49 Acquired absence of other specified parts of digestive tract; Z88.8 Allergy status to other drugs, medicaments and biological substances; Z79.2 Long term (current) use of antibiotics; Z79.899 Other long term (current) drug therapy
CPT/HCPCS: 36415; 74176; 76830; 76856; 80053; 81003; 81025; 83690; 85025; 93976; 96374; 99285; J1885

== ENCOUNTER 2020-07-11 20:37 | Emergency (ER) | payer BC ==
[~2020-07-11] VITALS: Ht 154.9 cm; Wt 79.5 kg
[2020-07-11 21:10] LABS: BASOPHILS # (AUTO) 0.1 X10'3 (0-0.2); BASOPHILS % (AUTO) 0.6 % (0-1); EOSINOPHILS # (AUTO) 0.1 X10'3 (0-0.9); EOSINOPHILS % (AUTO) 0.8 % (0-6); HEMATOCRIT 23.2 % (35.0-45.0); HEMOGLOBIN 7.5 g/dl (12.0-16.0); LYMPHOCYTES # (AUTO) 2.1 X10'3 (1.1-4.8); LYMPHOCYTES % (AUTO) 20.4 % (21-51); MEAN CORPUSCULAR HEMOGLOBIN 25.7 PG (27.0-31.0); MEAN CORPUSCULAR HGB CONC 32.3 g/dL (33.0-36.5); MEAN CORPUSCULAR VOLUME 79.6 FL (78-98); MONOCYTES # (AUTO) 0.9 X10'3 (0-0.9); MONOCYTES % (AUTO) 8.5 % (2-12); NEUTROPHILS # (AUTO) 7.3 X10'3 (1.8-7.7); NEUTROPHILS % (AUTO) 69.7 % (42-75); PLATELET COUNT 346 X10'3 (140-440); RED BLOOD COUNT 2.92 X10'6 (4.20-5.60); WHITE BLOOD COUNT 10.4 X10'3 (4.5-11.0)
[2020-07-11] MEDS ORDERED: normal saline 1000ML IV soln IVB ONE ×2 (21:35→22:00)
[2020-07-11] MEDS ORDERED: medroxyPROGESTERone acetate 150mg/ml inj IM ONE (21:55)
[2020-07-11] MEDS ORDERED: ferrous sulfate 325mg tablet PO ONE (22:05)
[2020-07-11 22:18] LABS: HCG SERUM QL NEGATIVE
[2020-07-11 22:20] LABS: ALANINE AMINOTRANSFERASE 28 U/L (12-78); ALBUMIN 3.3 G/DL (3.4-5.0); ALBUMIN/GLOBULIN RATIO 0.8 (1.1-1.5); ALKALINE PHOSPHATASE 88 IU/L (46-116); ANION GAP 6 (8-16); ASPARTATE AMINO TRANSFERASE 20 U/L (10-37); BILIRUBIN,TOTAL 0.2 MG/DL (0.1-1.0); BLOOD UREA NITROGEN 7 MG/DL (7-18); CALCIUM 8.4 MG/DL (8.5-10.1); CHLORIDE 106 MMOL/L (99-107); GLUCOSE 99 MG/DL (70-104); POTASSIUM 3.5 MMOL/L (3.5-5.1); SODIUM 135 MMOL/L (135-145); TOTAL CARBON DIOXIDE 22.8 MMOL/L (24-32); TOTAL PROTEIN 7.3 G/DL (6.4-8.2); eGFR > 90 ML/MIN
--- NOTE | 2020-07-11 22:21 | NUR ---
CONTACTED GRANULATOR TENDER @22:18 FAVIOLA ODOM
[2020-07-11 22:24] LABS: PARTIAL THROMBOPLASTIN TIME 24 SECONDS (22-32)
[2020-07-11] MEDS ORDERED: estrogens, conjugated 25mg inj IV ONE ×3 (22:25→23:05)
[2020-07-11] MEDS ORDERED: estrogens, conjugated 25mg inj IV SCH (22:25)
[2020-07-11] MEDS ORDERED: ibuprofen tablet 400 MG TABLET PO ONE (22:30)
--- NOTE | 2020-07-11 22:55 | NUR ---
Pt refusing premarin
--- NOTE | 2020-07-12 00:12 | NUR ---
consent for blood has been signed by all parties. Pt is currently eating some food as she was hungry. She seems to be irritable, hopefully food will help with this.
[2020-07-12] MEDS ORDERED: dextrose 50%-water 50ml dispensing syringe IV ONE (00:23)
[2020-07-12 00:31] VITALS: BP 118/83
--- NOTE | 2020-07-12 00:32 | NUR ---
First unit of blood was started. She is having issues at home with the fishing vessel operator whom is watching her 7 year old and is wanting to hurry with everything. when I got back from getting the blood at the blood bank she is laying down, she said I could give her the unit of blood.
[2020-07-12 00:44] VITALS: BP 116/81
[2020-07-12 01:17] VITALS: BP 111/58
[2020-07-12 01:31] VITALS: BP 96/57
[2020-07-12 01:44] VITALS: BP 112/72
[2020-07-12 02:39] VITALS: BP 101/65
== END 2020-07-12 02:59 | disposition home or self-care (01) ==
LOC: ER 20:38
DX: N93.9 Abnormal uterine and vaginal bleeding, unspecified (principal); D64.9 Anemia, unspecified; K21.9 Gastro-esophageal reflux disease without esophagitis; F41.9 Anxiety disorder, unspecified; F32.9 Major depressive disorder, single episode, unspecified; Z90.49 Acquired absence of other specified parts of digestive tract; Z88.8 Allergy status to other drugs, medicaments and biological substances; Z79.2 Long term (current) use of antibiotics; Z79.899 Other long term (current) drug therapy
CPT/HCPCS: 36415; 36430; 80053; 84703; 85025; 85610; 85730; 86885; 86900; 86901; 86920; 96360; 96361; 99285; J7030; P9016

== ENCOUNTER 2020-07-31 09:20 | Observation (INO) | payer BC ==
[2020-07-25 16:11] LABS: BASOPHILS % (AUTO) 0.3 % (0-1); EOSINOPHILS # (AUTO) 0.1 X10'3 (0-0.9); LYMPHOCYTES # (AUTO) 1.9 X10'3 (1.1-4.8); LYMPHOCYTES % (AUTO) 24.4 % (21-51); MEAN CORPUSCULAR VOLUME 81.4 FL (78-98); MEAN PLATELET VOLUME 7.4 FL (7.4-10.4); MONOCYTES # (AUTO) 0.7 X10'3 (0-0.9); MONOCYTES % (AUTO) 9.4 % (2-12); NEUTROPHILS % (AUTO) 64.9 % (42-75); PRE OP HEMATOCRIT 29.5 % (35.0-45.0); PRE OP PLATELET COUNT 399 X10'3 (140-440); RED BLOOD COUNT 3.63 X10'6 (4.20-5.60); RED CELL DISTRIBUTION WIDTH 17.3 % (11.5-14.5)
[2020-07-25 16:16] LABS: PRE OP HEMOGLOBIN 9.4 g/dL (12.0-16.0)
[2020-07-25 16:23] LABS: CLARITY,URINE CLEAR (Clear); COLOR,URINE STRAW (Yellow); GLUCOSE, URINE NEGATIVE (Neg); KETONES,URINE NEGATIVE (Neg); LEUKOCYTE ESTERASE ,URINE NEGATIVE (Neg); NITRITES, URINE NEGATIVE (Neg); OCCULT BLOOD,URINE MODERATE (Neg); PROTEIN,URINE NEGATIVE (Neg); UROBILINOGEN,URINE 0.2 E.U/dL (0.2-1.0)
[2020-07-25 16:25] LABS: ALBUMIN 3.4 G/DL (3.4-5.0); ALBUMIN/GLOBULIN RATIO 0.9 (1.1-1.5); ALKALINE PHOSPHATASE 96 IU/L (46-116); BLOOD UREA NITROGEN 8 MG/DL (7-18); BUN/CREATININE RATIO 10.8 (6.6-38.0); CALCIUM 8.2 MG/DL (8.5-10.1); CHLORIDE 109 MMOL/L (99-107); CREATININE 0.74 MG/DL (0.40-0.90); PRE OP ALT 24 U/L (30-65); PRE OP ANION GAP 7 (8-16); PRE OP AST 16 U/L (10-37); PRE OP BILIRUB, TOTAL 0.3 MG/DL (0.0-1.0); PRE OP GLUCOSE 96 MG/DL (70-104); PRE OP SODIUM 142 MMOL/L (135-145); TOTAL CARBON DIOXIDE 25.6 MMOL/L (24-32); TOTAL PROTEIN 7.4 G/DL (6.4-8.2); eGFR 90 ML/MIN
[2020-07-25 16:34] LABS: UA COLLECTION TYPE NON-SPECIFIED
[2020-07-25 16:35] LABS: BACTERIA,URINE FEW /HPF (Neg); MUCUS STRANDS MODERATE /LPF (Neg); SQUAMOUS EPITHELIAL CELL,UR MODERATE /LPF (FEW)
[2020-07-25 16:36] LABS: WBC,URINE 0-4 /HPF (0-4)
[2020-07-25 16:50] LABS: HCG SERUM QL NEGATIVE
[~2020-07-31] VITALS: Ht 154.9 cm; Wt 79.4 kg
[2020-07-31] VITALS (36 sets, daily range): BP systolic 92–141; BP diastolic 53–94
[~2020-07-31 09:20] MED LIST changes: -AMOX-441 PO; -CLAR500T22 PO; -HYDR-4383 PO; +LORA-269 PO; -MEDR10TA PO; -OMEP-50 PO; +ceFOXitin 2GM-NS 100mL ADDvant 100 ML IV ONE; +famotidine 20mg tablet PO ONE; +ringers solution, lacted 1,000 ML IV SCH
[2020-07-31] MEDS ORDERED: BUPIVAcaine/PF 2.5 mg/ml (0.25%) 30ml vial ONE ×2 (12:22→13:00)
[2020-07-31] MEDS ORDERED: fentaNYL/PF 50MCG/1 ML 2ML syringe ONE (12:37)
[2020-07-31] MEDS ORDERED: rocuronium 10mg/ml inj IV ONE (12:37)
[2020-07-31] MEDS ORDERED: midazolam 2 mg/2 ml injection ONE (12:37)
[2020-07-31] MEDS ORDERED: propofol inj 20 ML IV ONE (12:38)
[2020-07-31] MEDS ORDERED: dexamethasone sod phosphate 4mg/ml inj. ONE (12:38)
[2020-07-31] MEDS ORDERED: BUPIVAcaine 0.25% w/Epi /PF 30ml vial ONE (13:00)
[2020-07-31] MEDS ORDERED: morphine 2 MG/ML inj. syringe IV PRN (13:15)
[2020-07-31] MEDS ORDERED: ringers solution, lacted 1,000 ML IV SCH (13:15)
[2020-07-31] MEDS ORDERED: ondansetron/PF 4mg/2ml inj IV PRN (13:15)
[2020-07-31] MEDS ORDERED: proCHLORperazine 10 MG/2 ml inj IV PRN (13:15)
[2020-07-31] MEDS ORDERED: meperidine/PF 25mg/ml syringe IV PRN ×2 (13:15)
[2020-07-31] MEDS ORDERED: ondansetron/PF 4mg/2ml inj ONE (13:37)
[2020-07-31] MEDS ORDERED: sugammadex 200mg/2ml injection IV ONE (13:38)
--- NOTE | 2020-07-31 13:50 | NUR ---
Received from OR via [facility], accompanied by Anesthesiologist DR LORENZO and report given by Anesthesiolgist. PATIENT A&OX4, PAIN 10/10 PER PT MEDICATED PRE ORDERS, V/S WNL, NEUROVASCULAR CHECKS INTACT, 20G PIV UE.
[2020-07-31] MEDS: morphine 4 MG/ML inj SYRINge IV PRN ×3 (14:02→15:02)
[2020-07-31] MEDS: meperidine/PF 25mg/ml syringe IV PRN ×3 (14:08→15:22)
[2020-07-31] MEDS ORDERED: ketorolac trometh. 30mg/ml inj. IV ONE (14:35)
[2020-07-31] MEDS ORDERED: HYDROcodone/acetaminophen 10/325mg tab PO ONE (14:35)
[2020-07-31] MEDS ORDERED: acetaminophen 1,000mg/100ml IV 100 ML IV ONE (14:35)
--- NOTE | 2020-07-31 15:30 | NUR ---
PT CONT TO C/O 06/[address] SALAS ORDERS RECEIVED AND INITIATED.
--- NOTE | 2020-07-31 15:50 | NUR ---
PT CONTS TO C/O 10/10 PAIN AFTER 75MG OF DEMEROL AND 12MG OF MORPHINE, TORADOL AND IV TYLENOL. ENCOURAGING PT TO GET UP AND AMB TO DISTRIBUTE ABD GAS. PT NOT VERY WILLING TO DO SO
[2020-07-31] MEDS ORDERED: HYDROmorphone/PF 0.2 MG/ML SYRINGE IV PRN ×2 (16:05)
[2020-07-31] MEDS ORDERED: CADD PCA waste documentation MC PRN (17:15)
[2020-07-31] MEDS ORDERED: zolpidem 5mg tablet PO PRN (17:15)
[2020-07-31] MEDS ORDERED: naloxone 0.4 mg/ml inj IV PRN (17:15)
[2020-07-31] MEDS: HYDROmorphone/NS 1 mg/ml CADD 50 ML IV SCH ×4 (18:00→23:00)
--- NOTE | 2020-07-31 18:50 | NUR ---
PT CONTINUED TO STRUGGLE WITH PAIN CONTROL THROUGH PACU STAY. SHE HAS BEEN TACHYCARDIC SINCE SURGERY, 120'S. BP STABLE. UNABLE TO GET OOB WITHOUT FEELING FLUSHED AND NEEDING TO LAY BACK DOWN. DR SALAS WAS NOTIFIED, ADMIT ORDERS RECD. DILUADID CADD STARTED FOR PAIN CONTROL, PT EDUCATED ON ITS USE. SHE VERBALIZED UNDERSTANDING. TOLERATING PO FLUIDS WELL. TRANSFERRED TO AACE UNIT FOR OVERNIGHT OBSERVATION. REPORT GIVEN TO RECEIVING RN. PT BACKPACK AND CLOTHING WITH HER IN NEW ROOM.
[2020-07-31] MEDS ORDERED: LORazepam 1 MG tablet PO PRN (19:10)
[2020-07-31] MEDS ORDERED: LORazepam 2 mg/ml vial IV ONE (20:00)
[2020-08-01] MEDS: HYDROmorphone/NS 1 mg/ml CADD 50 ML IV SCH ×5 (01:00→09:00)
[2020-08-01 02:00] VITALS: BP 108/71
--- NOTE | 2020-08-01 06:26 | NUR ---
Problems reprioritized. Patient report given, questions answered & plan of care reviewed with MARK AGUIRRE.
[2020-08-01 09:46] VITALS: BP_SYST 106
[2020-08-01 09:48] VITALS: BP 106/69
== END 2020-08-01 10:10 | disposition home or self-care (01) ==
LOC: PAS 09:20 → MED 3N 17:12
PROVIDERS: ADMIT Obstetrics & Gynecology Obstetrics; ATTEND Obstetrics & Gynecology Obstetrics
DX: N92.1 Excessive and frequent menstruation with irregular cycle (principal); Z20.828 Contact with and (suspected) exposure to other viral communicable diseases; N83.8 Other noninflammatory disorders of ovary, fallopian tube and broad ligament; D64.9 Anemia, unspecified; F41.8 Other specified anxiety disorders; Z79.899 Other long term (current) drug therapy
CPT/HCPCS: 36415; 58555; 58661; 80053; 81001; 82948; 84703; 85025; 86885; 86900; 86901; 87635; 96361; 96365; 96366; 96375; 96376; C9399; G0378; J0131; J0694; J1100; J1170; J1885; J2060; J2175; J2250; J2270; J2405; J2704; J3010; J3490; J7120; A4264; A4355; A4618; A6258; A7000

== ENCOUNTER 2021-07-24 12:27 | Emergency (ER) | payer BC ==
[~2021-07-24] VITALS: Ht 154.9 cm; Wt 86.4 kg
[~2021-07-24 12:27] MED LIST changes: -ceFOXitin 2GM-NS 100mL ADDvant 100 ML IV ONE; -famotidine 20mg tablet PO ONE; -ringers solution, lacted 1,000 ML IV SCH
[2021-07-24 13:02] VITALS: BP 131/80
[2021-07-24 13:52] LABS: URINE HCG NEGATIVE (NEG)
[2021-07-24 13:58] LABS: COLOR,URINE YELLOW (Yellow); UA COLLECTION TYPE CLN CATCH MIDSTREAM
[2021-07-24 13:59] LABS: CLARITY,URINE CLEAR (Clear); GLUCOSE, URINE NEGATIVE (Neg); KETONES,URINE NEGATIVE (Neg); LEUKOCYTE ESTERASE ,URINE NEGATIVE (Neg); NITRITES, URINE NEGATIVE (Neg); OCCULT BLOOD,URINE NEGATIVE (Neg); PH,URINE 6.5 (4.8-8.0); PROTEIN,URINE NEGATIVE (Neg); UROBILINOGEN,URINE 0.2 E.U/dL (0.2-1.0)
[2021-07-25] MEDS ORDERED: PHEN-786 PO (00:54)
[2021-07-25] MEDS ORDERED: OXYB5TAB16 PO (00:54)
== END 2021-07-24 18:07 | disposition left against medical advice (07) ==
LOC: ER 12:27
DX: N39.0 Urinary tract infection, site not specified (principal); Z53.21 Procedure and treatment not carried out due to patient leaving prior to being seen by health care provider
CPT/HCPCS: 81003; 81025

== ENCOUNTER 2021-07-24 22:28 | Emergency (ER) | payer BC ==
[~2021-07-24] VITALS: Ht 154.9 cm; Wt 77.2 kg
[2021-07-25 00:16] LABS: BASOPHILS % (AUTO) 0.3 % (0-1); EOSINOPHILS # (AUTO) 0.2 X10'3 (0-0.9); EOSINOPHILS % (AUTO) 2.3 % (0-6); HEMATOCRIT 38.1 % (35.0-45.0); HEMOGLOBIN 13.2 g/dl (12.0-16.0); LYMPHOCYTES # (AUTO) 2.9 X10'3 (1.1-4.8); LYMPHOCYTES % (AUTO) 36.1 % (21-51); MEAN CORPUSCULAR HEMOGLOBIN 30.9 PG (27.0-31.0); MEAN CORPUSCULAR HGB CONC 34.7 g/dL (33.0-36.5); MEAN CORPUSCULAR VOLUME 89.2 FL (78-98); MEAN PLATELET VOLUME 7.7 FL (7.4-10.4); MONOCYTES # (AUTO) 0.7 X10'3 (0-0.9); MONOCYTES % (AUTO) 9.2 % (2-12); NEUTROPHILS # (AUTO) 4.1 X10'3 (1.8-7.7); NEUTROPHILS % (AUTO) 52.1 % (42-75); PLATELET COUNT 313 X10'3 (140-440); RED BLOOD COUNT 4.27 X10'6 (4.20-5.60); RED CELL DISTRIBUTION WIDTH 13.4 % (11.5-14.5); WHITE BLOOD COUNT 7.9 X10'3 (4.5-11.0)
[2021-07-25 00:28] LABS: ALBUMIN 3.3 G/DL (3.4-5.0); ANION GAP 9 (8-16); BLOOD UREA NITROGEN 7 MG/DL (7-18); BUN/CREATININE RATIO 9.5 (6.6-38.0); CALCIUM 8.2 MG/DL (8.5-10.1); CHLORIDE 106 MMOL/L (99-107); CREATININE 0.74 MG/DL (0.40-0.90); GLUCOSE 98 MG/DL (70-104); POTASSIUM 3.7 MMOL/L (3.5-5.1); SODIUM 139 MMOL/L (135-145); TOTAL CARBON DIOXIDE 24.1 MMOL/L (24-32); eGFR 89 ML/MIN
[2021-07-25] MEDS ORDERED: OXYB5TAB16 PO (00:54)
[2021-07-25] MEDS ORDERED: PHEN-786 PO (00:54)
[2021-07-25] MEDS ORDERED: oxybutynin 5mg tablet PO SCH (00:55)
[2021-07-25] MEDS ORDERED: oxybutynin 5mg tablet PO ONE (00:55)
[2021-07-25] MEDS: ketorolac trometh. 30mg/ml inj. IM ONE ×2 (01:07→01:12)
[2021-07-25 01:15] VITALS: BP 119/83
== END 2021-07-25 01:17 | disposition home or self-care (01) ==
LOC: ER 22:28
DX: R30.0 Dysuria (principal); R10.30 Lower abdominal pain, unspecified; R30.9 Painful micturition, unspecified; K21.9 Gastro-esophageal reflux disease without esophagitis; F41.9 Anxiety disorder, unspecified; F32.9 Major depressive disorder, single episode, unspecified; Z90.49 Acquired absence of other specified parts of digestive tract; Z98.51 Tubal ligation status; Z88.8 Allergy status to other drugs, medicaments and biological substances; Z79.899 Other long term (current) drug therapy
CPT/HCPCS: 36415; 80048; 85025; 96372; 99283; J1885

== ENCOUNTER 2022-12-04 16:44 | Emergency (ER) | payer BC ==
[~2022-12-04] VITALS: Ht 154.9 cm; Wt 85.5 kg
[~2022-12-04 16:44] MED LIST changes: +OXYB5TAB16 PO; +PHEN-786 PO
[2022-12-04 18:21] LABS: CLARITY,URINE CLEAR (Clear); COLOR,URINE YELLOW (Yellow); GLUCOSE, URINE NEGATIVE (Neg); KETONES,URINE NEGATIVE (Neg); LEUKOCYTE ESTERASE ,URINE NEGATIVE (Neg); NITRITES, URINE NEGATIVE (Neg); OCCULT BLOOD,URINE TRACE-INTACT (Neg); PH,URINE 5.5 (4.8-8.0); PROTEIN,URINE NEGATIVE (Neg); UROBILINOGEN,URINE 0.2 E.U/dL (0.2-1.0)
[2022-12-04 18:24] LABS: URINE HCG NEGATIVE (NEG)
[2022-12-04 18:28] LABS: BASOPHILS % (AUTO) 0.2 % (0-1); EOSINOPHILS # (AUTO) 0.2 X10'3 (0-0.9); EOSINOPHILS % (AUTO) 1.6 % (0-6); HEMATOCRIT 42.2 % (35.0-45.0); HEMOGLOBIN 14.5 g/dl (12.0-16.0); LYMPHOCYTES # (AUTO) 2.7 X10'3 (1.1-4.8); LYMPHOCYTES % (AUTO) 26.9 % (21-51); MEAN CORPUSCULAR HEMOGLOBIN 32.1 PG (27.0-31.0); MEAN CORPUSCULAR HGB CONC 34.2 g/dL (33.0-36.5); MEAN CORPUSCULAR VOLUME 93.7 FL (78-98); MEAN PLATELET VOLUME 7.8 FL (7.4-10.4); MONOCYTES # (AUTO) 0.9 X10'3 (0-0.9); MONOCYTES % (AUTO) 8.5 % (2-12); NEUTROPHILS # (AUTO) 6.4 X10'3 (1.8-7.7); NEUTROPHILS % (AUTO) 62.8 % (42-75); PLATELET COUNT 311 X10'3 (140-440); RED BLOOD COUNT 4.51 X10'6 (4.20-5.60); WHITE BLOOD COUNT 10.2 X10'3 (4.5-11.0)
[2022-12-04 18:35] LABS: ALANINE AMINOTRANSFERASE 37 U/L (12-78); ALBUMIN 4.1 G/DL (3.4-5.0); ALBUMIN/GLOBULIN RATIO 1.1 (1.1-1.5); ALKALINE PHOSPHATASE 100 IU/L (46-116); ANION GAP 10 (8-16); ASPARTATE AMINO TRANSFERASE 23 U/L (10-37); BILIRUBIN,TOTAL 0.3 MG/DL (0.1-1.0); BLOOD UREA NITROGEN 14 MG/DL (7-18); BUN/CREATININE RATIO 15.7 (10.0-20.0); CALCIUM 9.3 MG/DL (8.5-10.1); CHLORIDE 104 MMOL/L (99-107); CREATININE 0.89 MG/DL (0.40-0.90); GLUCOSE 98 MG/DL (70-104); POTASSIUM 3.5 MMOL/L (3.5-5.1); SODIUM 139 MMOL/L (135-145); TOTAL CARBON DIOXIDE 25.2 MMOL/L (24-32); TOTAL PROTEIN 7.7 G/DL (6.4-8.2); eGFR 71 ML/MIN
[2022-12-04 18:36] LABS: UA COLLECTION TYPE CLN CATCH MIDSTREAM
[2022-12-04 18:39] LABS: BACTERIA,URINE NONE SEEN /HPF (Neg); MUCUS STRANDS MANY /LPF (Neg); RBC,URINE 0-2 /HPF (0-2); SQUAMOUS EPITHELIAL CELL,UR FEW /LPF (FEW); WBC,URINE 0-4 /HPF (0-4)
[2022-12-04] MEDS ORDERED: HYDROcodone/acetaminophen 10/325mg tab PO ONE (22:00)
[2022-12-04] MEDS ORDERED: ketorolac trometh. 30mg/ml inj. IM ONE (22:05)
[2022-12-04 22:54] VITALS: BP 122/97
== END 2022-12-04 22:57 | disposition home or self-care (01) ==
LOC: ER 16:45
DX: R10.31 Right lower quadrant pain (principal); K21.9 Gastro-esophageal reflux disease without esophagitis; Z88.8 Allergy status to other drugs, medicaments and biological substances; Z90.49 Acquired absence of other specified parts of digestive tract; Z98.51 Tubal ligation status
CPT/HCPCS: 36415; 76830; 76856; 80053; 81001; 81025; 85025; 93976; 96372; 99285; J1885

== ENCOUNTER 2022-12-27 09:30 | Emergency (ER) | payer BC ==
[~2022-12-27] VITALS: Ht 154.9 cm; Wt 86.4 kg
[2022-12-27 09:44] VITALS: BP 134/99
[2022-12-27] MEDS ORDERED: HYDROcodone/acetaminophen 5mg/325mg tablet PO ONE (10:10)
[2022-12-27] MEDS ORDERED: ketorolac trometh inj. 60 MG/2 ML VIAL IM ONE (10:15)
[2022-12-27] MEDS ORDERED: TRAM50TA2 PO ×2 (10:36)
[2022-12-27] MEDS ORDERED: ONDA4TAB12 PO (10:36)
[2022-12-27] MEDS ORDERED: NAPR-56 PO (10:40)
== END 2022-12-27 11:11 | disposition home or self-care (01) ==
LOC: ER 09:31
DX: N94.89 Other specified conditions associated with female genital organs and menstrual cycle (principal); K21.9 Gastro-esophageal reflux disease without esophagitis; Z88.8 Allergy status to other drugs, medicaments and biological substances; Z90.49 Acquired absence of other specified parts of digestive tract; Z98.51 Tubal ligation status
CPT/HCPCS: 96372; 99283; J1885

== ENCOUNTER 2022-12-29 22:54 | Emergency (ER) | payer BC ==
[~2022-12-29] VITALS: Ht 154.9 cm; Wt 86.4 kg
[~2022-12-29 22:54] MED LIST changes: +NAPR-56 PO; +ONDA4TAB12 PO; +TRAM50TA2 PO
[2022-12-29] MEDS ORDERED: normal saline 1000ML IV soln IVB ONE (23:45)
[2022-12-29] MEDS ORDERED: ketorolac tromethamine 15mg/ml inj. IV ONE (23:45)
[2022-12-29] MEDS ORDERED: morphine 4 MG/ML inj SYRINge IV ONE (23:45)
[2022-12-30 00:18] LABS: BASOPHILS % (AUTO) 0.4 % (0-1); EOSINOPHILS # (AUTO) 0.1 X10'3 (0-0.9); EOSINOPHILS % (AUTO) 1.3 % (0-6); HEMATOCRIT 43.4 % (35.0-45.0); HEMOGLOBIN 14.7 g/dl (12.0-16.0); LYMPHOCYTES # (AUTO) 2.2 X10'3 (1.1-4.8); LYMPHOCYTES % (AUTO) 21.2 % (21-51); MEAN CORPUSCULAR HEMOGLOBIN 31.5 PG (27.0-31.0); MEAN CORPUSCULAR HGB CONC 33.7 g/dL (33.0-36.5); MEAN CORPUSCULAR VOLUME 93.4 FL (78-98); MONOCYTES # (AUTO) 0.8 X10'3 (0-0.9); MONOCYTES % (AUTO) 7.5 % (2-12); NEUTROPHILS # (AUTO) 7.2 X10'3 (1.8-7.7); NEUTROPHILS % (AUTO) 69.6 % (42-75); PLATELET COUNT 265 X10'3 (140-440); RED BLOOD COUNT 4.65 X10'6 (4.20-5.60); RED CELL DISTRIBUTION WIDTH 12.7 % (11.5-14.5); WHITE BLOOD COUNT 10.3 X10'3 (4.5-11.0)
[2022-12-30 00:32] LABS: ALANINE AMINOTRANSFERASE 34 U/L (12-78); ALBUMIN 4.1 G/DL (3.4-5.0); ALBUMIN/GLOBULIN RATIO 1.2 (1.1-1.5); ALKALINE PHOSPHATASE 102 IU/L (46-116); ANION GAP 13 (8-16); ASPARTATE AMINO TRANSFERASE 22 U/L (10-37); BILIRUBIN,TOTAL 0.7 MG/DL (0.1-1.0); BLOOD UREA NITROGEN 15 MG/DL (7-18); CALCIUM 8.8 MG/DL (8.5-10.1); CHLORIDE 104 MMOL/L (99-107); CREATININE 0.79 MG/DL (0.40-0.90); GLUCOSE 109 MG/DL (70-104); POTASSIUM 3.5 MMOL/L (3.5-5.1); SODIUM 139 MMOL/L (135-145); TOTAL CARBON DIOXIDE 22.5 MMOL/L (24-32); TOTAL PROTEIN 7.6 G/DL (6.4-8.2); eGFR 82 ML/MIN
[2022-12-30 02:09] LABS: CLARITY,URINE CLEAR (Clear); COLOR,URINE YELLOW (Yellow); GLUCOSE, URINE NEGATIVE (Neg); KETONES,URINE NEGATIVE (Neg); LEUKOCYTE ESTERASE ,URINE NEGATIVE (Neg); NITRITES, URINE NEGATIVE (Neg); OCCULT BLOOD,URINE NEGATIVE (Neg); PROTEIN,URINE NEGATIVE (Neg); URINE HCG NEGATIVE (NEG); UROBILINOGEN,URINE 0.2 E.U/dL (0.2-1.0)
[2022-12-30 02:14] LABS: UA COLLECTION TYPE CLN CATCH MIDSTREAM
[2022-12-30 02:22] VITALS: BP 119/83
== END 2022-12-30 06:21 | disposition home or self-care (01) ==
LOC: ER 22:54
DX: D25.9 Leiomyoma of uterus, unspecified (principal); R10.2 Pelvic and perineal pain; K21.9 Gastro-esophageal reflux disease without esophagitis; F41.9 Anxiety disorder, unspecified; F32.A Depression, unspecified; Z88.8 Allergy status to other drugs, medicaments and biological substances; Z79.899 Other long term (current) drug therapy
CPT/HCPCS: 36415; 76856; 80053; 81003; 81025; 85025; 93976; 96361; 96374; 96375; 99285; J1885; J2270; J7030

== ENCOUNTER 2023-01-13 07:14 | Emergency (ER) | payer BC ==
[~2023-01-13] VITALS: Ht 154.9 cm; Wt 83.2 kg
[~2023-01-13 07:14] MED LIST changes: -NAPR-56 PO
[2023-01-13] MEDS ORDERED: acetaminophen 325mg tablet PO ONE (07:45)
[2023-01-13 07:46] LABS: URINE HCG NEGATIVE (NEG)
[2023-01-13 08:01] LABS: CLARITY,URINE SLIGHTLY CLOUDY (Clear); COLOR,URINE STRAW (Yellow); GLUCOSE, URINE NEGATIVE (Neg); KETONES,URINE NEGATIVE (Neg); LEUKOCYTE ESTERASE ,URINE NEGATIVE (Neg); NITRITES, URINE NEGATIVE (Neg); OCCULT BLOOD,URINE NEGATIVE (Neg); PROTEIN,URINE NEGATIVE (Neg); UROBILINOGEN,URINE 0.2 E.U/dL (0.2-1.0)
[2023-01-13 08:05] LABS: UA COLLECTION TYPE CLN CATCH MIDSTREAM
[2023-01-13 08:12] LABS: BACTERIA,URINE FEW /HPF (Neg); MUCUS STRANDS NONE SEEN /LPF (Neg); RBC,URINE 0-2 /HPF (0-2); SQUAMOUS EPITHELIAL CELL,UR MODERATE /LPF (FEW); WBC,URINE 0-4 /HPF (0-4)
[2023-01-13 08:15] LABS: BASOPHILS % (AUTO) 0.3 % (0-1); EOSINOPHILS # (AUTO) 0.1 X10'3 (0-0.9); EOSINOPHILS % (AUTO) 1.5 % (0-6); HEMOGLOBIN 14.2 g/dl (12.0-16.0); LYMPHOCYTES # (AUTO) 2.2 X10'3 (1.1-4.8); LYMPHOCYTES % (AUTO) 26.4 % (21-51); MEAN CORPUSCULAR HEMOGLOBIN 31.5 PG (27.0-31.0); MEAN CORPUSCULAR HGB CONC 33.8 g/dL (33.0-36.5); MEAN CORPUSCULAR VOLUME 93.1 FL (78-98); MONOCYTES # (AUTO) 0.7 X10'3 (0-0.9); MONOCYTES % (AUTO) 7.9 % (2-12); NEUTROPHILS # (AUTO) 5.3 X10'3 (1.8-7.7); NEUTROPHILS % (AUTO) 63.9 % (42-75); PLATELET COUNT 288 X10'3 (140-440); RED BLOOD COUNT 4.51 X10'6 (4.20-5.60); RED CELL DISTRIBUTION WIDTH 12.8 % (11.5-14.5); WHITE BLOOD COUNT 8.3 X10'3 (4.5-11.0)
[2023-01-13 08:17] VITALS: BP 123/90
[2023-01-13] MEDS ORDERED: iohexol 300mg/ml 100ml inj. ONE (08:23)
[2023-01-13 08:33] LABS: ALANINE AMINOTRANSFERASE 50 U/L (12-78); ALBUMIN 3.8 G/DL (3.4-5.0); ALBUMIN/GLOBULIN RATIO 1.2 (1.1-1.5); ALKALINE PHOSPHATASE 80 IU/L (46-116); ANION GAP 11 (8-16); ASPARTATE AMINO TRANSFERASE 31 U/L (10-37); BILIRUBIN,TOTAL 0.6 MG/DL (0.1-1.0); BLOOD UREA NITROGEN 7 MG/DL (7-18); BUN/CREATININE RATIO 10.6 (10.0-20.0); CALCIUM 9.2 MG/DL (8.5-10.1); CHLORIDE 103 MMOL/L (99-107); CREATININE 0.66 MG/DL (0.40-0.90); GLUCOSE 104 MG/DL (70-104); POTASSIUM 3.6 MMOL/L (3.5-5.1); SODIUM 139 MMOL/L (135-145); TOTAL CARBON DIOXIDE 24.8 MMOL/L (24-32); eGFR > 90 ML/MIN
[2023-01-13 08:40] LABS: BETA HCG,QUANTITATIVE < 1.0 mIU/ml; LIPASE 127 U/L (73-393)
[2023-01-20] MEDS ORDERED: HYDR-3972 PO (15:35)
== END 2023-01-13 11:06 | disposition home or self-care (01) ==
LOC: ER 07:15
DX: N83.209 Unspecified ovarian cyst, unspecified side (principal); R10.31 Right lower quadrant pain; D25.9 Leiomyoma of uterus, unspecified; K21.9 Gastro-esophageal reflux disease without esophagitis; Z90.49 Acquired absence of other specified parts of digestive tract; Z88.8 Allergy status to other drugs, medicaments and biological substances; Z98.51 Tubal ligation status
CPT/HCPCS: 36415; 74177; 80053; 81001; 81025; 83690; 84702; 85025; 99285; J3490; Q9967

== ENCOUNTER 2023-01-27 07:42 | Day surgery (SDC) | payer BC ==
[2023-01-20 16:08] LABS: CLARITY,URINE CLEAR (Clear); COLOR,URINE YELLOW (Yellow); GLUCOSE, URINE NEGATIVE (Neg); KETONES,URINE NEGATIVE (Neg); LEUKOCYTE ESTERASE ,URINE NEGATIVE (Neg); NITRITES, URINE NEGATIVE (Neg); OCCULT BLOOD,URINE NEGATIVE (Neg); PROTEIN,URINE NEGATIVE (Neg); UROBILINOGEN,URINE 0.2 E.U/dL (0.2-1.0)
[2023-01-20 16:09] LABS: BASOPHILS % (AUTO) 0.3 % (0-1); EOSINOPHILS # (AUTO) 0.2 X10'3 (0-0.9); EOSINOPHILS % (AUTO) 2.1 % (0-6); LYMPHOCYTES # (AUTO) 2.2 X10'3 (1.1-4.8); LYMPHOCYTES % (AUTO) 26.6 % (21-51); MEAN CORPUSCULAR HEMOGLOBIN 31.5 PG (27.0-31.0); MEAN CORPUSCULAR HGB CONC 33.8 g/dL (33.0-36.5); MEAN CORPUSCULAR VOLUME 93.3 FL (78-98); MEAN PLATELET VOLUME 7.8 FL (7.4-10.4); MONOCYTES # (AUTO) 0.7 X10'3 (0-0.9); MONOCYTES % (AUTO) 9.1 % (2-12); NEUTROPHILS # (AUTO) 5.1 X10'3 (1.8-7.7); NEUTROPHILS % (AUTO) 61.9 % (42-75); PRE OP HEMATOCRIT 38.8 % (35.0-45.0); PRE OP HEMOGLOBIN 13.1 g/dL (12.0-16.0); PRE OP PLATELET COUNT 281 X10'3 (140-440); RED BLOOD COUNT 4.15 X10'6 (4.20-5.60)
[2023-01-20 16:09] LABS: UA COLLECTION TYPE CLN CATCH MIDSTREAM
[2023-01-20 16:29] LABS: ALBUMIN 3.6 G/DL (3.4-5.0); ALBUMIN/GLOBULIN RATIO 1.1 (1.1-1.5); ALKALINE PHOSPHATASE 83 IU/L (46-116); BLOOD UREA NITROGEN 15 MG/DL (7-18); BUN/CREATININE RATIO 22.7 (10.0-20.0); CALCIUM 8.7 MG/DL (8.5-10.1); CHLORIDE 104 MMOL/L (99-107); CREATININE 0.66 MG/DL (0.40-0.90); PRE OP ALT 31 U/L (30-65); PRE OP ANION GAP 5 (8-16); PRE OP AST 13 U/L (10-37); PRE OP BILIRUB, TOTAL 0.3 MG/DL (0.0-1.0); PRE OP GLUCOSE 96 MG/DL (70-104); PRE OP POTASSIUM 3.8 MMOL/L (3.4-5.1); PRE OP SODIUM 137 MMOL/L (135-145); TOTAL CARBON DIOXIDE 27.8 MMOL/L (24-32); TOTAL PROTEIN 6.8 G/DL (6.4-8.2); eGFR > 90 ML/MIN
[2023-01-20 16:34] LABS: HCG SERUM QL NEGATIVE
[~2023-01-27] VITALS: Ht 185.4 cm; Wt 82.2 kg
[2023-01-27] VITALS (19 sets, daily range): BP systolic 112–142; BP diastolic 73–97
[~2023-01-27 07:42] MED LIST changes: +BUPIVAcaine/PF 2.5 mg/ml (0.25%) 30ml vial ONE; +HYDR-3972 PO; -ONDA4TAB12 PO; -OXYB5TAB16 PO; -PHEN-786 PO; -TRAM50TA2 PO; +ceFOXitin 2GM-NS 100mL ADDvant 100 ML IV ONE; +famotidine 20mg tablet PO ONE; +neomy sulf/polymyxin B sulf. GU irrigation 1ml amp IR ONE; +ringers solution, lacted 1,000 ML IV SCH; +vasoPRESSIN 20 units/ml inj. ONE
[2023-01-27] MEDS ORDERED: clindamycin phosphate 40gm vag cream ONE (07:43)
[2023-01-27] MEDS ORDERED: HYDROmorphone inj. 0.5 MG/0.5 ML DISP.SYRIN IV ONE (10:15)
[2023-01-27] MEDS ORDERED: ringers solution, lacted 1,000 ML IV SCH (11:10)
[2023-01-27] MEDS ORDERED: proCHLORperazine 10 MG/2 ml inj IV PRN (11:10)
[2023-01-27] MEDS ORDERED: meperidine/PF 25mg/ml syringe IV PRN ×3 (11:10)
[2023-01-27] MEDS ORDERED: morphine 2 MG/ML inj. syringe IV PRN (11:10)
[2023-01-27] MEDS ORDERED: ondansetron/PF 4mg/2ml inj IV PRN ×2 (11:10→14:20)
[2023-01-27] MEDS ORDERED: morphine 4 MG/ML inj SYRINge IV PRN (11:10)
[2023-01-27] MEDS ORDERED: propofol inj 20 ML IV ONE (11:15)
[2023-01-27] MEDS ORDERED: midazolam 1 mg/ML 2ml injection ONE ×2 (11:15→11:23)
[2023-01-27] MEDS ORDERED: fentaNYL /PF 50mcg/ml 5ml ampule ONE (11:15)
[2023-01-27] MEDS ORDERED: rocuronium 10mg/ml inj IV ONE ×2 (11:15→11:18)
[2023-01-27] MEDS ORDERED: sevoflurane 250ml liquid IH ONE (11:18)
[2023-01-27] MEDS ORDERED: dexamethasone sod phosphate 4mg/ml inj. ONE (11:35)
[2023-01-27] MEDS ORDERED: ondansetron/PF 4mg/2ml inj ONE (13:02)
[2023-01-27] MEDS ORDERED: acetaminophen 1,000mg/100ml IV 100 ML IV ONE (13:04)
[2023-01-27] MEDS ORDERED: sugammadex 200mg/2ml injection IV ONE (14:12)
[2023-01-27] MEDS ORDERED: ketorolac trometh. 30mg/ml inj. ONE (14:14)
[2023-01-27] MEDS ORDERED: ketorolac trometh. 30mg/ml inj. IV PRN (14:20)
[2023-01-27] MEDS ORDERED: normal saline 500ml IV soln 500 ML IV PRN (14:20)
[2023-01-27] MEDS ORDERED: temazepam 15mg capsule PO PRN (14:20)
[2023-01-27] MEDS ORDERED: HYDROcodone/acetaminophen 10/325mg tab PO PRN ×2 (14:20)
[2023-01-27] MEDS ORDERED: LORazepam 2 mg/ml vial IV PRN (14:20)
[2023-01-27] MEDS ORDERED: magnesium hydroxide 30ml (MOM) UD suspension PO PRN (14:20)
[2023-01-27] MEDS ORDERED: diphenhydrAMINE 50 mg/ml inj IV PRN (14:20)
--- NOTE | 2023-01-27 14:26 | NUR ---
Received from OR via BED, accompanied by Anesthesiologist and report given by MAURA Anesthesiologist. PATIENT WAKING UP, NO S/S OF PAIN, V/S WNL, SCD ON, 20G TO LEFT HAND, ABDOMEN LAP SITE CLEAN W/ NO S/S OF COMPLICATIONS. LUZMARIA PAD C/D/I. PT RESTING COMFORTABLY. VALDOVINOS CATHETER DRAINING CLEAR URINE. WILL CONTINUE TO ASSESS. Addendum: 01/27/23 at 1501 by Scott Garcia RN Amended: Links added.
--- NOTE | 2023-01-27 15:45 | NUR ---
Pt transferred from Recovery Room to 4012a via bed. Pt drowsy but easily aroused. Pt reported abd pain, refused Toradol when offered and refused to have physical assessment performed at this time. VSS. Will attempt assessment at a later time. Call luz within reach and instructed to use.
--- NOTE | 2023-01-27 15:46 | NUR ---
PATIENT HAS MET ALL CRITERIA FOR TRANSFER TO ORTHO FLOOR. VSS. DRESSINGS INTACT. BED LOW, CALL LIGHT PRESENT AND 2 RAILS UP. RN PRESENT TO ACCEPT CARE OF PATIENT AND REPORT HAS BEEN CALLED. ALL QUESTIONS ANSWERED TO ACCEPTING RN. Addendum: 01/27/23 at 1553 by Scott Garcia RN Amended: Links added.
[2023-01-27] MEDS: HYDROmorphone inj. 0.5 MG/0.5 ML DISP.SYRIN IV PRN ×2 (17:36→22:32)
[2023-01-27] MEDS: ringers solution, lacted 1,000 ML IV SCH ×2 (19:18→22:20)
[2023-01-27] MEDS: docusate sod 100mg capsule PO SCH (20:26)
[2023-01-28 02:00] VITALS: BP 131/81
[2023-01-28 05:00] VITALS: BP 142/92
[2023-01-28] MEDS: ringers solution, lacted 1,000 ML IV SCH (06:20)
--- NOTE | 2023-01-28 06:50 | NUR ---
Patient in room ORTHO 4012. I have received report from TIMOTHY Brar and had the opportunity to ask questions and assume patient care.
[2023-01-28 06:51] LABS: BASOPHILS % (AUTO) 0.1 % (0-1); EOSINOPHILS % (AUTO) 0 % (0-6); HEMATOCRIT 34.4 % (35.0-45.0); HEMOGLOBIN 11.7 g/dl (12.0-16.0); LYMPHOCYTES # (AUTO) 1.3 X10'3 (1.1-4.8); MEAN CORPUSCULAR HEMOGLOBIN 31.8 PG (27.0-31.0); MEAN CORPUSCULAR HGB CONC 33.9 g/dL (33.0-36.5); MEAN PLATELET VOLUME 8.2 FL (7.4-10.4); MONOCYTES # (AUTO) 1.3 X10'3 (0-0.9); MONOCYTES % (AUTO) 9.4 % (2-12); NEUTROPHILS # (AUTO) 10.8 X10'3 (1.8-7.7); NEUTROPHILS % (AUTO) 80.5 % (42-75); PLATELET COUNT 326 X10'3 (140-440); RED BLOOD COUNT 3.67 X10'6 (4.20-5.60); WHITE BLOOD COUNT 13.5 X10'3 (4.5-11.0)
[2023-01-28 06:54] LABS: ALBUMIN 3.3 G/DL (3.4-5.0); ANION GAP 8 (8-16); BLOOD UREA NITROGEN 11 MG/DL (7-18); BUN/CREATININE RATIO 15.5 (10.0-20.0); CALCIUM 8.6 MG/DL (8.5-10.1); CHLORIDE 102 MMOL/L (99-107); CREATININE 0.71 MG/DL (0.40-0.90); GLUCOSE 126 MG/DL (70-104); POTASSIUM 3.6 MMOL/L (3.5-5.1); SODIUM 136 MMOL/L (135-145); TOTAL CARBON DIOXIDE 25.7 MMOL/L (24-32); eGFR > 90 ML/MIN
[2023-01-28] MEDS: docusate sod 100mg capsule PO SCH (08:09)
[2023-01-28] MEDS: HYDROmorphone inj. 0.5 MG/0.5 ML DISP.SYRIN IV PRN ×2 (08:10→12:28)
[2023-01-28 10:00] VITALS: BP 111/61
--- NOTE | 2023-01-28 13:35 | NUR ---
DC inst provided to pt. IV DC'd, tip intact. All belongings sent w/pt. Pt ambulated to vehicle.
== END 2023-01-28 13:35 | disposition home or self-care (01) ==
LOC: PAS 07:42 → ORTHO 4S 14:19 → PAS 01-28 13:35
PROVIDERS: ATTEND Obstetrics & Gynecology Obstetrics
DX: R10.2 Pelvic and perineal pain (principal); D25.1 Intramural leiomyoma of uterus; N83.01 Follicular cyst of right ovary; Q51.3 Bicornate uterus; F41.9 Anxiety disorder, unspecified; E66.9 Obesity, unspecified; Z68.33 Body mass index [BMI] 33.0-33.9, adult; Z98.51 Tubal ligation status; Z90.49 Acquired absence of other specified parts of digestive tract; Z98.890 Other specified postprocedural states; Z87.891 Personal history of nicotine dependence; Z88.8 Allergy status to other drugs, medicaments and biological substances; Z79.899 Other long term (current) drug therapy
CPT/HCPCS: 36415; 58550; 58662; 71046; 80048; 80053; 81003; 82948; 84703; 85025; 86885; 86900; 86901; 87081; 93005; J0131; J0694; J1100; J1170; J1885; J2175; J2250; J2405; J2704; J3010; J3490; J7030; J7120; Z7506; Z7508; Z7512; A4314; A4615; A4618; A7000; G0378

== ENCOUNTER 2024-05-11 16:28 | Emergency (ER) | payer BC ==
[~2024-05-11] VITALS: Ht 154.9 cm; Wt 86.2 kg
[~2024-05-11 16:28] MED LIST changes: -BUPIVAcaine/PF 2.5 mg/ml (0.25%) 30ml vial ONE; -ceFOXitin 2GM-NS 100mL ADDvant 100 ML IV ONE; -famotidine 20mg tablet PO ONE; -neomy sulf/polymyxin B sulf. GU irrigation 1ml amp IR ONE; -ringers solution, lacted 1,000 ML IV SCH; -vasoPRESSIN 20 units/ml inj. ONE
[2024-05-11 16:33] VITALS: TEMP 98.3
[2024-05-11 17:37] LABS: BILIRUBIN,URINE NEGATIVE (Neg); CLARITY,URINE CLEAR (Clear); COLOR,URINE STRAW (Yellow); GLUCOSE, URINE NEGATIVE (Neg); KETONES,URINE NEGATIVE (Neg); LEUKOCYTE ESTERASE ,URINE NEGATIVE (Neg); NITRITES, URINE NEGATIVE (Neg); OCCULT BLOOD,URINE NEGATIVE (Neg); PROTEIN,URINE NEGATIVE (Neg); UROBILINOGEN,URINE 0.2 E.U/dL (0.2-1.0)
[2024-05-11 17:40] LABS: BASOPHILS % (AUTO) 0.3 % (0-1); EOSINOPHILS # (AUTO) 0.2 X10'3 (0-0.9); EOSINOPHILS % (AUTO) 1.8 % (0-6); HEMATOCRIT 39.8 % (35.0-45.0); HEMOGLOBIN 13.5 g/dl (12.0-16.0); LYMPHOCYTES # (AUTO) 2.4 X10'3 (1.1-4.8); LYMPHOCYTES % (AUTO) 24.1 % (21-51); MEAN CORPUSCULAR HEMOGLOBIN 32.1 PG (27.0-31.0); MEAN CORPUSCULAR VOLUME 94.4 FL (78-98); MONOCYTES # (AUTO) 0.8 X10'3 (0-0.9); MONOCYTES % (AUTO) 8.1 % (2-12); NEUTROPHILS # (AUTO) 6.5 X10'3 (1.8-7.7); NEUTROPHILS % (AUTO) 65.7 % (42-75); PLATELET COUNT 255 X10'3 (140-440); RED BLOOD COUNT 4.21 X10'6 (4.20-5.60); RED CELL DISTRIBUTION WIDTH 13.1 % (11.5-14.5); WHITE BLOOD COUNT 9.9 X10'3 (4.5-11.0)
[2024-05-11 17:41] LABS: UA COLLECTION TYPE NON-SPECIFIED
[2024-05-11 17:53] LABS: ALANINE AMINOTRANSFERASE 29 U/L (12-78); ALBUMIN 3.5 G/DL (3.4-5.0); ALBUMIN/GLOBULIN RATIO 1.1 (1.1-1.5); ALKALINE PHOSPHATASE 86 IU/L (46-116); ANION GAP 8 (8-16); ASPARTATE AMINO TRANSFERASE 13 U/L (10-37); BILIRUBIN,TOTAL 0.2 MG/DL (0.1-1.0); BLOOD UREA NITROGEN 13 MG/DL (7-18); BUN/CREATININE RATIO 18.3 (10.0-20.0); CALCIUM 9.5 MG/DL (8.5-10.1); CHLORIDE 106 MMOL/L (99-107); CREATININE 0.71 MG/DL (0.40-0.90); GLUCOSE 109 MG/DL (70-104); POTASSIUM 3.6 MMOL/L (3.5-5.1); SODIUM 142 MMOL/L (135-145); TOTAL PROTEIN 6.8 G/DL (6.4-8.2); eCRCL 81 ML/MIN; eGFR > 90 ML/MIN
[2024-05-11 18:32] VITALS: BP 127/77; PULSE 75; RESP 16; O2SAT 94
== END 2024-05-11 18:34 | disposition home or self-care (01) ==
LOC: ER 16:28
DX: R10.9 Unspecified abdominal pain (principal); R10.31 Right lower quadrant pain; R10.30 Lower abdominal pain, unspecified; F41.9 Anxiety disorder, unspecified; F32.A Depression, unspecified; Z98.51 Tubal ligation status; Z90.49 Acquired absence of other specified parts of digestive tract; Z79.899 Other long term (current) drug therapy; Z88.8 Allergy status to other drugs, medicaments and biological substances; Z90.710 Acquired absence of both cervix and uterus
CPT/HCPCS: 36415; 74176; 80053; 81003; 85025; 99284